=== PATIENT | male | born 1985 | race Hispanic/Latino ===

== ENCOUNTER 2019-03-11 14:48 | Inpatient (IN) | payer BC, OTHER ==
[~2019-03-11] VITALS: Ht 185.4 cm; Wt 104.3 kg
[2019-03-11] MEDS ORDERED: SODIUM CHLORIDE 0.9% 1000ML 1,000 ML IV STA (16:23)
[2019-03-11] MEDS: HYDROCODONE/APAP 5MG-325MG TAB PO PRN (17:35)
[2019-03-11] MEDS: VANCOMYCIN 1GM/NS 250 ML 250 ML IV SCH (17:40)
[2019-03-11] MEDS: PIPER-TAZ 3.375 GM 50 ML IV SCH (17:40)
--- NOTE | 2019-03-11 17:59 | Diagnostic Imaging Report ---
LEFT FOOT - 3 Images HISTORY: Cellulitis, ulceration, great toe, rule out osteo- COMPARISON: None available. FINDINGS: Overlying bandage partially limits bone detail. Bones: No acute displaced fracture. No discrete osseous erosion. Joints: Minimal hallux valgus. Soft tissues: Apparent soft tissue defect at the plantar aspect of the great toe along with regional soft tissue swelling and emphysema. IMPRESSION: 1. No radiographic evidence of osteomyelitis. 2. No radiopaque foreign body or underlying fracture. Signed by: Dr. North Norris D.O., M.M.M. on 03/11/2019 5:56 PM
[2019-03-11 18:09] LABS: BASOPHILS # (AUTO) 0.1 (0.0-0.1); BASOPHILS % 0.8 % (0.0-1.0); EOSINOPHILS # (AUTO) 0.1 (0.0-0.4); EOSINOPHILS % 0.9 % (0.0-6.0); HEMATOCRIT 40.7 % (38.2-49.6); HEMOGLOBIN 14.8 g/dL (14.0-18.0); LYMPHOCYTES # (AUTO) 0.9 (1.0-3.2); LYMPHOCYTES % 5.8 % (18.0-39.1); MEAN CORPUSCULAR HEMOGLOBIN 30.3 pg (28-32); MEAN CORPUSCULAR HGB CONC 36.4 g/dL (31-35); MEAN CORPUSCULAR VOLUME 83.2 fL (81-99); MONOCYTES # (AUTO) 1.1 (0.2-0.8); NEUTROPHILS # (AUTO) 12.9 (2.1-6.9); PLATELET COUNT 267 x10e3/uL (140-360); RED BLOOD COUNT 4.89 x10e6/uL (4.3-5.7)
[2019-03-11 18:15] LABS: CLARITY,URINE SL CLOUDY (CLEAR); KETONES,URINE 1+ (NEGATIVE); LEUKOCYTE ESTERASE ,URINE NEGATIVE (NEGATIVE); NITRITE,URINE NEGATIVE (NEGATIVE); PROTEIN,URINE DIPSTICK 2+ (NEGATIVE); URINE UROBILINOGEN 4 mg/dL (0.2 - 1)
[2019-03-11] MEDS ORDERED: DEXTROSE 50% SYRINGE 50 ML IV PRN (18:15)
[2019-03-11] MEDS ORDERED: ONDANSETRON HCL INJ 2MG/ML 2ML 2 MG/ML VIAL IV PRN (18:15)
[2019-03-11 18:16] LABS: BILIRUBIN,URINE 1+ (NEGATIVE); COLOR,URINE STRAW (YELLOW)
[2019-03-11 18:20] LABS: INR 0.94; PROTHROMBIN TIME 13.1 seconds (11.9-14.5)
[2019-03-11 18:21] LABS: PARTIAL THROMBOPLASTIN TIME 31.2 seconds (23.8-35.5)
[2019-03-11 18:24] LABS: AMORPHOUS SEDIMENT,URINE MODERATE (FEW); BACTERIA,URINE MODERATE /HPF; EPITHELIAL CELLS,URINE MODERATE /LPF; HYALINE CASTS 0-1 (0-1); MUCUS,URINE FEW (RARE); TRANSITIONAL EPI CELLS,URINE FEW
[2019-03-11 18:28] LABS: ALANINE AMINOTRANSFERASE 11 IU/L (0-55); ALBUMIN 2.6 g/dL (3.5-5.0); ALBUMIN/GLOBULIN RATIO 0.5 (0.8-2.0); ALKALINE PHOSPHATASE 119 IU/L (40-150); BLOOD UREA NITROGEN 13 mg/dL (7-26); BUN/CREATININE RATIO 14 (6-25); CALCIUM 9.5 mg/dL (8.4-10.2); CARBON DIOXIDE 26 mmol/L (22-29); CHLORIDE 96 mmol/L (98-107); CREATININE, SERUM 0.91 mg/dL (0.72-1.25); EST GLOMERULAR FILTRATION RATE > 60 ML/MIN (60-); GLUCOSE 201 mg/dL (74-118); MAGNESIUM 1.7 MG/DL (1.3-2.1); SODIUM 132 mmol/L (136-145)
--- OUTSIDE RECORDS SUMMARY | 2019-03-11 18:56 | XMS REPORT ---
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 Allergies, Adverse Reactions, Alerts This patient has no known allergies or adverse reactions. Medications This patient has no known medications. 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 FINDINGS: Overlying bandage partially limits bone detail. Bones: No acute displaced fracture. No discrete osseous erosion. Joints: Minimal hallux valgus. Soft tissues: Apparent soft tissue defect at the plantar aspect of the great toe along with regional soft tissue swelling and emphysema. IMPRESSION: 1. No radiographic evidence of osteomyelitis. 2. No radiopaque foreign body or underlying fracture. Signed by: Dr. Brian Norris D.O., M.M.M. on 03/11/2019 5:56 PM Dictated By: BRIAN NORRIS DO 54 Transcribed By: VALARIE on 03/11/191755 COPY TO: CORNELIUS TAPIA NP
[2019-03-11] MEDS: SODIUM CHLORIDE 0.9% 1000ML 1,000 ML IV SCH (18:58)
[2019-03-11] MEDS: IBUPROFEN 600 MG TAB PO PRN (19:20)
[2019-03-11] MEDS: INSULIN LISPRO 100 UNIT/1 ML 3ML VIAL SQ SCH (21:00)
[2019-03-11 22:02] VITALS: BP 122/64
--- NOTE | 2019-03-11 22:40 | NUR ---
Patient received via stretcher from ER. AAO x 4. Admission history obtained and initial physical assessment performed. Patient had no complaints of pain. Respirations even and non-labored. Dressing to left foot changed. IVF infusing at 100 cc /hr. Patient oriented to room, call light and plan of care. Fall precautions implemented. Patient instructed to call for assistance when needed. Call light within reach.
[2019-03-11 22:45] VITALS: BP 122/64
[2019-03-12] VITALS (7 sets, daily range): BP systolic 131–150; BP diastolic 76–86
[2019-03-12] MEDS: SODIUM CHLORIDE 0.9% 1000ML 1,000 ML IV SCH (04:08)
[2019-03-12] MEDS: IBUPROFEN 600 MG TAB PO PRN ×2 (05:14→22:09)
[2019-03-12] MEDS: VANCOMYCIN 1GM/NS 250 ML 250 ML IV SCH (05:15)
[2019-03-12] MEDS ORDERED: METFORMIN HCL500 MG PO (06:10)
[2019-03-12] MEDS: PIPER-TAZ 3.375 GM 50 ML IV SCH ×4 (06:18→22:04)
[2019-03-12] MEDS: INSULIN LISPRO 100 UNIT/1 ML 3ML VIAL SQ SCH ×4 (07:30→21:00)
--- NOTE | 2019-03-12 12:14 | NUR ---
WOUND CARE CONSULTATION: INITIAL EVALUATION Patient admitted from Home to ER for Worsening ulcer of Left Foot that started 2 weeks ago. Patient was referred from his PCP to admit under Dr Castillo. Wound Culture Performed on admission revealed no growth. X-ray- No Osteomyelitis but + for tissue swelling suggestive of cellulitis. Wound Care Consulted for Evaluation of Left Foot Great Toe Ulcer PATIENT VISIT: Patient AAOX4, Calm and cooperative. Able to tolerate manipulation and probing of open ulcer. Left Foot presents with swelling. Redness originating from Left Hallux and streaking to plantar aspect of foot and also streaking toward 1st Metatarsal. 2 ulcerations present and connect/ tunnel. Additional tunneling toward dorsal aspect of 1st metatarsal head 1.5cm . Able to probe to bone on proximal opening at area between 5 and 6 0'clock. Malodorous, draining copious amounts of purulent drainage upon expression from 1st met toward toe. Wound bed 60% slough and 40% friable granulation Wound measurements documented on Wound Assessment portion and are linked to this note. Periwound macerated with loose skin/unattached. Purple areas to dorsal aspect of left great toe with denuded epidermis. Reviewed care with Dr Castillo at bedside. Recommendation: will likely require surgical intervention, MRI ordered for ruling out Osteomyelitis, and deep culture swab ordered for c&S and gram stain. ABX adjusted by Dr. Castillo. Dr. Guzman DPM consulted for evaluation of ulcer for surgical debridement and washout. IMPRESSION: Left Foot Hallux- DFU Grade 3 RECOMMENDATION: Left Foot Hallux- DFU Grade 3 - Irrigate Tunneling wound with 30cc of Dakins 0.25% Solution q12h. - Pack Wound with Iodoform 1/4" Packing Gauze then apply Drawtex over open weeping areas, then 4x4 gauze and wrap with Kerlix every 12 Hours and PRN Strikethrough. Thank you for consulting with Wound Care. Addendum: 03/12/19 at 1232 by Brooks Zazueta RN Amended: Links added. Addendum: 03/12/19 at 1238 by Brooks Zazueta RN LABS: WBC15.11 HGB14.98 HCT40.7 NEUT%85 SVQ327 ALB2.6 Ovidio Score 20 No Pressure Ulcers Identified. Ambulatory.
[2019-03-12] MEDS: HYDROCODONE/APAP 5MG-325MG TAB PO PRN (13:52)
[2019-03-12] MEDS: SODIUM HYPOCHLORITE 0.25% 480 ML SOLN IR SCH ×2 (14:00→22:54)
--- NOTE | 2019-03-12 15:54 | Consultation ---
DATE OF CONSULTATION: CHIEF COMPLAINT AND HISTORY OF CHIEF COMPLAINT: Mr. Gideon Maciel is a most pleasant 33-year-old gentleman with severely infected left hallux. 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 The patient's previous medical history does indeed include diabetes, distal peripheral neuropathy, and some degree of peripheral arterial disease as yet to be determined. REVIEW OF SYSTEMS: Otherwise negative. He does report that he has had some fever, but no nausea and vomiting. FAMILY HISTORY: He has an aunt who is diabetic, but states no other family members are diabetic, particularly his parents are not diabetic. ALLERGIES: NO KNOWN DRUG ALLERGIES. LABORATORY DATA: He does have a white count which is elevated at 15.11. Deep wound culture and sensitivity has been taken and is pending. PHYSICAL EVALUATION OF LOWER EXTREMITY: Vascular status, the patient has mildly palpable pedal pulses, both dorsalis pedis and posterior tibial. Skin temperature is warm and capillary refill is within normal limits. Neurologically, the patient has a loss of protective sensation as evidenced by [place] monofilament testing. There is no pain to this large abscessed area with open wound through and through on the left hallux. Dermatologically, there is a xzbelfc-nrf-cqanauc wound starting on the plantar aspect of the left hallux measuring approximately 2 cm in circumference. This extends to an exit wound on the dorsal aspect through an abscessed area with raw granular tissue. It is possible to pass a probe all the way through. Bone is palpable through the abscessed area. Musculoskeletal evaluation shows the patient with rigidly contracted hammertoes, bunion deformities, and subluxed hallux. Radiographs are inconclusive for osteomyelitis at this point with some obstruction being noted with bandaging. DIAGNOSIS: Abscess cellulitis of the 1st metatarsophalangeal joint and hallux IPJ of the left foot. The abscessed area or cellulitic area extends to the midfoot grossly and has 2+ nonpitting edema with purpura and redness noted and a mottled appearance. MRI is pending and will be needed in order to further assess the bone infection. The patient otherwise will need an I and D and clean out regardless, but may also require an amputation of the hallux with this jucjrbm-cjk-bvnptoe wound. Arterial Dopplers will be ordered as well. The patient has been started on IV antibiotics and will pend further evaluation for long-term antibiotic care with Dr. Hood. JEFE Pugh/SHELIA /[id number]
[2019-03-12] MEDS: LACTOBACILLUS ACIDOPHILUS CAPSULE PO SCH (17:00)
[2019-03-12] MEDS: METFORMIN HCL 500 MG TAB PO SCH (17:00)
--- NOTE | 2019-03-12 17:11 | Diagnostic Imaging Report ---
TECHNIQUE: Magnetic resonance imaging of the LEFT foot was performed WITHOUT injected contrast. HISTORY: Cellulitis, diabetes, rule out osteomyelitis the left big toe COMPARISON: None available. DISCUSSION: Bone: Moderate bone marrow edema within the proximal and distal phalanges of the great toe. Patchy corresponding mildly decreased fatty marrow signal, which is more confluent at the medial and distal aspect of the first proximal phalanx, underlying the region of the soft tissue defect. Joints: Mild hallux valgus deformity. Trace effusions of the first interphalangeal joint, first metatarsophalangeal joint, second metatarsophalangeal joint, and sex proximal phalanx. Soft Tissues: Diffuse soft tissue edema, without a drainable fluid collection. Soft tissue defect at the medial and plantar aspect of the mid great toe. IMPRESSION: 1. High probability of osteomyelitis involving the medial and distal aspect of the first proximal phalanx with nonspecific reactive bone marrow edema of the remaining first proximal phalanx, first distal talus, and lateral aspect of the head of the first metatarsal bone. 2. Soft tissue edema without an abscess. Signed by: Dr. North Norris D.O., M.M.M. on 03/12/2019 5:08 PM
--- NOTE | 2019-03-12 19:28 | NUR ---
Patient received lying in bed. AAO x 4. No acute distress noted. Call light within reach.
--- NOTE | 2019-03-12 21:55 | Consultation ---
DATE OF CONSULTATION: REASON FOR CONSULTATION: Foot infection. HISTORY OF PRESENT ILLNESS: This patient who is a very pleasant 33-year-old male with history of diabetes mellitus, history of neuropathy, smoking, but he quit 2 years ago, history of hypertension. For the last 10 days or so, he has been having redness and swelling of his left foot big toe. He had callus. He tried to take it out, but the foot became red and swollen. He took some oral antibiotic when he came here after seeing his physician without any improvement. The patient was sent to the hospital. The patient was admitted. The patient is complaining of redness and swelling and pain in the foot, who has no history of trauma. PAST MEDICAL HISTORY: Diabetes mellitus, hypertension, neuropathy. PAST SURGICAL HISTORY: Denies. ALLERGIES: NKA. SOCIAL HISTORY: He used to smoke, but he quit 2 years ago. No drug abuse or alcohol abuse. FAMILY HISTORY: Hypertension and diabetes. REVIEW OF SYSTEMS: HEENT: There is no headache, visual changes, or hearing changes. : Negative. GI: Negative. SKIN: There is no other rash. JOINT: Negative. The patient has a history of left foot hallux. PHYSICAL EXAMINATION: GENERAL: He is currently alert, oriented, does not seem to be in acute distress. VITAL SIGNS: Stable, currently afebrile. HEENT: Not icteric. NECK: Supple. CHEST: Clear. HEART: S1 and S2. No S3, S4, or murmur. ABDOMEN: Soft. Bowel sounds present. No tenderness. EXTREMITIES: No edema. Left foot, there is erythema. There is edema in the foot. There is an ulcer stage III deep about 1 cm. LABORATORY DATA: White count is 15.1, hemoglobin 14.9. Glucose 152. IMPRESSION: Left foot infection, cellulitis, diabetic foot ulcer stage III with drainage, deep, concerned about osteomyelitis. We will put the patient on vancomycin and cefepime. Surgical debridement. Agree with MRI with contrast to rule out osteomyelitis, abscess of the foot. He would need I and D and send for culture and sensitivity. Recheck CBC. Recheck Chem panel. We will follow. MD BERNADINE Lake/MODL /[id number]
--- NOTE | 2019-03-12 23:15 | NUR ---
Patient informed of upcoming surgical procedure ---I & D with possible amputation. Patient stated he does not feel comfortable with "possible amputation" and would want to talk more with Dr. Mcneil before surgery . Patient instructed about "NPO' status at midnight. Patient verbalized understanding. Disclosure and Consent form remains unsigned.
[2019-03-13] VITALS (8 sets, daily range): BP systolic 119–159; BP diastolic 70–95
[2019-03-13] MEDS: HYDROCODONE/APAP 5MG-325MG TAB PO PRN ×2 (01:00→14:08)
--- NOTE | 2019-03-13 01:24 | NUR ---
Wound dressing done per MD's orders. Patient tolerated well.
[2019-03-13] MEDS: PIPER-TAZ 3.375 GM 50 ML IV SCH ×3 (03:31→22:09)
[2019-03-13 05:23] LABS: BASOPHILS # (AUTO) 0.1 (0.0-0.1); BASOPHILS % 0.9 % (0.0-1.0); EOSINOPHILS # (AUTO) 0.3 (0.0-0.4); EOSINOPHILS % 2.6 % (0.0-6.0); HEMATOCRIT 36.3 % (38.2-49.6); HEMOGLOBIN 12.4 g/dL (14.0-18.0); LYMPHOCYTES # (AUTO) 1.4 (1.0-3.2); LYMPHOCYTES % 11.1 % (18.0-39.1); MEAN CORPUSCULAR HEMOGLOBIN 29.3 pg (28-32); MEAN CORPUSCULAR HGB CONC 34.2 g/dL (31-35); MEAN CORPUSCULAR VOLUME 85.8 fL (81-99); MONOCYTES # (AUTO) 0.9 (0.2-0.8); MONOCYTES % 7.5 % (4.4-11.3); NEUTROPHILS # (AUTO) 9.4 (2.1-6.9); NEUTROPHILS % 77.1 % (38.7-80.0); PLATELET COUNT 232 x10e3/uL (140-360); RED BLOOD COUNT 4.23 x10e6/uL (4.3-5.7); RED CELL DISTRIBUTION WIDTH 11.9 % (11.7-14.4)
[2019-03-13 05:48] LABS: ANION GAP 9.5 mmol/L (8-16); BLOOD UREA NITROGEN 9 mg/dL (7-26); BUN/CREATININE RATIO 11 (6-25); CALCIUM 8.6 mg/dL (8.4-10.2); CARBON DIOXIDE 25 mmol/L (22-29); CHLORIDE 101 mmol/L (98-107); EST GLOMERULAR FILTRATION RATE > 60 ML/MIN (60-); GLUCOSE 180 mg/dL (74-118); POTASSIUM 3.5 mmol/L (3.5-5.1); SODIUM 132 mmol/L (136-145)
--- NOTE | 2019-03-13 06:03 | NUR ---
Dr. Shayne Mcneil paged regarding patient's request to speak to MD before surgery. Awaiting call back.
--- NOTE | 2019-03-13 07:10 | NUR ---
Walking rounds done. Shift report given to oncoming nurse regarding patient's status.
[2019-03-13] MEDS: VANCOMYCIN 1GM/NS 250 ML 250 ML IV SCH (07:24)
[2019-03-13] MEDS: INSULIN LISPRO 100 UNIT/1 ML 3ML VIAL SQ SCH ×4 (07:30→22:25)
[2019-03-13] MEDS: METFORMIN HCL 500 MG TAB PO SCH ×2 (08:00→17:05)
[2019-03-13] MEDS: VANCOMYCIN HCL 1.25 GM in SODIUM CHLORIDE 0.9% 250ML 250 ML IV SCH ×2 (08:30→20:25)
[2019-03-13] MEDS: LACTOBACILLUS ACIDOPHILUS CAPSULE PO SCH ×2 (08:51→17:05)
[2019-03-13] MEDS: SODIUM HYPOCHLORITE 0.25% 480 ML SOLN IR SCH ×2 (09:05→20:14)
[2019-03-13] MEDS ORDERED: BUPIVACAINE HCL 0.5% INJ 30 ML VIAL INJ ONE (09:18)
[2019-03-13] MEDS ORDERED: NEOSTIGMINE 1 MG/ML 10ML VIAL ONE (09:19)
[2019-03-13] MEDS ORDERED: BACITRACIN 50,000 UNIT VIAL ONE ×2 (09:19→09:56)
--- NOTE | 2019-03-13 09:30 | NUR ---
patient off unit for I&D left foot.
[2019-03-13] MEDS ORDERED: FENTANYL CITRATE/PF 100MCG/2 ML INJ ONE ×2 (10:48→14:18)
--- NOTE | 2019-03-13 11:26 | NUR ---
patient returned from I&D. reports pain 12/07 at this time. left foot elevated on 2 pillows, offered ice bag however states will call for it if needed. call light within reach.
[2019-03-13] MEDS ORDERED: MIDAZOLAM HCL 2 MG/2 ML VIAL ONE (14:18)
[2019-03-13] MEDS ORDERED: PROPOFOL IV EMULSION 10 MG/ML 20 ML VIAL ONE (14:38)
[2019-03-13] MEDS ORDERED: SEVOFLURANE INHAL SOLN 250 ML PEN BTL ONE (14:38)
[2019-03-13] MEDS ORDERED: LIDOCAINE HCL 2% LOCAL INJ 5 ML SDV VIAL INJ ONE (14:38)
[2019-03-13] MEDS ORDERED: ONDANSETRON HCL INJ 2MG/ML 2ML 2 MG/ML VIAL ONE (14:38)
[2019-03-13] MEDS ORDERED: DEXAMETHASONE SOD PHOS INJ 4 MG/ML VIAL ONE (14:38)
[2019-03-13] MEDS ORDERED: KETOROLAC TROMETHAMINE 30 MG/ML VIAL ONE (14:38)
[2019-03-13] MEDS ORDERED: SILVER NITRATE SWABS TOP ONE (15:30)
--- NOTE | 2019-03-13 16:10 | NUR ---
WOUND CARE CONSULTATION: INITIAL EVALUATION Patient admitted from Home to ER for Worsening ulcer of Left Foot that started 2 weeks ago. Patient was referred from his PCP to admit under Dr Castillo. Wound Culture Performed on admission revealed no growth. X-ray- No Osteomyelitis but + for tissue swelling suggestive of cellulitis. LABS: WBC12.14 HGB12.4 HCT36.3 NEUT%77.1 Wound Care Consulted for Evaluation of Left Foot Great Toe Ulcer PATIENT VISIT: 03/13/19 Patient OOB to rest room. Ambulating self back to bed. Education provided. NWB at this time to left Foot. S/P I&D of Left Foot DFU Grade 3 this morning. New Order noted for VAC Placement. Dressing Removed to Left Foot. Strikethrough noted, bloody. - Packing removed. Noted tricking of blood to gauze. Dr. Guzman informed of findings. Rec'd okay to try Silver nitrate sticks. Two sticks tried. noted multiple areas continued to trickle. Too many areas noted and tissue too friable to continue. VAC not appropriate at this time. Dr. Guzman agrees. Okay to place VAC on hold and use Iodoform Packing Gauze. Okay to re-evaluate foot ulcer on Saturday for VAC placement. Wound Packed with Iodoform Packing gauze and Covered with staggered 4x4 gauze and secured with Kerlix wrap and Brayden Bandage. Diabetes education provided. Will need continued reinforcement. Education provided on how to manage dressed wound, Plan reviewed. Patient verbalized understanding. Wound Measurements documented on Wound Assessment section with wound description. Wound Assessment is linked to this note. Ovidio Score 20 No Pressure Ulcers Identified. LAST VISIT: 03/12/19 Patient AAOX4, Calm and cooperative. Able to tolerate manipulation and probing of open ulcer. Left Foot presents with swelling. Redness originating from Left Hallux and streaking to plantar aspect of foot and also streaking toward 1st Metatarsal. 2 ulcerations present and connect/ tunnel. Additional tunneling toward dorsal aspect of 1st metatarsal head 1.5cm . Able to probe to bone on proximal opening at area between 5 and 6 0'clock. Malodorous, draining copious amounts of purulent drainage upon expression from 1st met toward toe. Wound bed 60% slough and 40% friable granulation Wound measurements documented on Wound Assessment portion and are linked to this note. Periwound macerated with loose skin/unattached. Purple areas to dorsal aspect of left great toe with denuded epidermis. Reviewed care with Dr Castillo at bedside. Recommendation: will likely require surgical intervention, MRI ordered for ruling out Osteomyelitis, and deep culture swab ordered for c&S and gram stain. ABX adjusted by Dr. Castillo. Dr. Guzman DPM consulted for evaluation of ulcer for surgical debridement and washout. IMPRESSION: Left Foot Hallux- DFU Grade 3 RECOMMENDATION: 1. Hold VAC Placement until Saturday. 2. Left Foot Hallux- DFU Grade 3 - S/p I&D and Washout. - Cleanse wound with NS and 4x4 gauze Daily. - Pack Wound with Iodoform 1/4" Packing Gauze then 4x4 gauze and wrap with Kerlix and Brayden Bandage Daily. 3. NWB Left Foot 4. Walker to bedside. Addendum: 03/13/19 at 1626 by Brooks Zazueta RN Amended: Links added.
--- NOTE | 2019-03-13 17:26 | Operative Report ---
DATE OF PROCEDURE: 03/13/2019 SURGEON: Ayan Guzman DPM PREOPERATIVE DIAGNOSES: 1. Osteomyelitis of the left hallux. 2. Abscess cellulitis, left foot with septic arthritis, deep wound infection. POSTOPERATIVE DIAGNOSES: 1. Osteomyelitis of the left hallux. 2. Abscess cellulitis, left foot with septic arthritis, deep wound infection. TITLE OF OPERATION: Incision and drainage with deep wound debridement of the left foot hallux and 1st metatarsal area. ANESTHESIA: General endotracheal. HEMOSTASIS: None used. PROCEDURE IN DETAIL: The patient was taken to the operating room in a mildly sedated state, placed upon the operating table in supine position. Following induction of general anesthetic, the left lower extremity was elevated and prepped and draped in the usual aseptic manner utilized Betadine prep, placed upon the operating table prior to performing following procedure. With expression, there was significant purulent exudate from both the area of the 1st metatarsophalangeal joint as well as the area of the interphalangeal joint of the left hallux. An incision was made medially from the interphalangeal joint all the way down to the connecting abscess and septic joint of the 1st metatarsophalangeal joint. Then, incision was deepened via sharp and blunt dissection. Multiple pus pockets were noted dorsally and plantarly with significant necrotic wound debris in all areas inspected. The cellulitis was intense and purulent exudate significant and in conjunction with bone. The bone itself was noted to be hard and there was no bone deformity, but it was in both joints bathed in purulent exudate. After dissection and probing of all significant abscessed areas, deep wound debridement was performed with a #15 blade, excisional in nature. That area was then irrigated with copious amounts of sterile bacitracin solution. A Simpulse system was used to irrigate and washout the entire joint both IPJ and MPJ as well as all soft tissue abscessed areas. There was a communicating wound from the plantar aspect of the interphalangeal joint, which was quite large all the way to the dorsum of the hallux encompassing soft tissues overlying both the proximal and distal phalanx of the hallux. The incision having thus been probed and irrigated. Attention was directed to the plantar wound, which was further debrided utilizing an excisional debridement and #15 blade. This wound now measures approximately 4 cm in circumference. The wound on the dorsal medial aspect measures approximately 6 cm in circumference. Both were evaluated for any further necrotic material. All pus pockets having thus been irrigated were packed with quarter-inch iodoform separately. The appropriate mildly compressive dressings were applied. No tourniquet had been used. Approximately 10-15 mL of blood was lost with the procedure. A human tissue allograft was injected into the area to facilitate healing. This was a flowable graft and covered the remaining tissues. The wound was thus closed and packed open. Deep wound culture and sensitivities had been taken prior to antibiotic irrigation. The patient tolerated both anesthetic and procedure very well and will return to the floor for further local wound care. Likely, wound VAC will be used due to the size of the wounds. We will follow with appropriate wound care and IV antibiotics as per Dr. Hood's request. Addendum: Please note that amputation of the left hallux was not performed. The patient was consented for possible amputation, but no amputation was performed on this visit. JEFE Pugh/SHELIA /[id number]
[2019-03-13] MEDS ORDERED: ONDANSETRON HCL 4 MG ORAL DISINTEGRATING TAB PO PRN (17:30)
--- NOTE | 2019-03-13 19:19 | NUR ---
Patient received sitting up in bed. AAO x 4. Patient had no complains of pain. No signs of respiratory distress. Dressing to left foot clean, dry and intact. Fall precautions implemented. Patient instructed to call for assistance when needed. Call light within reach.
[2019-03-14] VITALS (8 sets, daily range): BP systolic 116–136; BP diastolic 64–76
[2019-03-14] MEDS: PIPER-TAZ 3.375 GM 50 ML IV SCH ×3 (05:42→22:10)
--- NOTE | 2019-03-14 05:58 | NUR ---
Patient informed of recommended medical procedure-- PICC line place placement. Patient verbalized understanding and voluntarily signed "Disclosure and Consent " form.
--- NOTE | 2019-03-14 06:29 | NUR ---
Patient resting comfortably. Walking rounds done . Shift report given to oncoming nurse.
--- NOTE | 2019-03-14 07:27 | Progress Note ---
DATE: 03/13/2019 Internal Medicine Progress Note This is a coverage for Dr. Arslan Castillo. SUBJECTIVE: Mr. Maciel was seen and examined at bedside. He continues with steady progress. Yesterday, MRI was performed, which demonstrated high probability of osteomyelitis. The patient subsequently had Podiatry perform washout. There was furthermore some debridement of the lesion of the foot. Hemoglobin A1c came back very high at 11.4%. The patient remains at the bedside with cultures have shown Staphylococcus aureus as well as many Streptococcus. REVIEW OF SYSTEMS: No headaches, no bleeding. OBJECTIVE: VITAL SIGNS: Afebrile, vital signs noted and reviewed per the chart record. GENERAL: In no acute distress, alert and calm. HEENT: Normocephalic, atraumatic. NECK: Supple. Throat midline. LUNGS: Bilateral air entry, clear. CARDIOVASCULAR: S1, S2. No murmurs, rubs, or gallops. ABDOMEN: Soft, nontender. EXTREMITIES: No clubbing, no cyanosis. There is no darion edema. INTEGUMENT: No rash, no purpura. The left distal foot is covered. LABORATORY DATA: Labs reviewed per the chart record. IMPRESSION AND PLAN: 1. Abscess with cellulitis of the first metatarsophalangeal joint and hallux IPJ left foot. 2. Postoperative state, status post debridement and washout. 3. Diabetes. 4. Hypertension. 5. Hypoalbuminemia, moderate protein malnutrition. Continue to optimize diet. As the patient eats regular diet, we will escalate medicines appropriately. For now, we have restarted him on metformin, which he was on a long time ago. He was encouraged that he needs diabetes. Follow up the cultures. PICC line will be placed and the patient is expectant for long-term antibiotics. MD WAYNE Ugarte/MODL /[id number]
[2019-03-14] MEDS: METFORMIN HCL 500 MG TAB PO SCH ×2 (08:47→16:11)
[2019-03-14] MEDS: VANCOMYCIN HCL 1.25 GM in SODIUM CHLORIDE 0.9% 250ML 250 ML IV SCH ×2 (08:47→20:24)
[2019-03-14] MEDS: LACTOBACILLUS ACIDOPHILUS CAPSULE PO SCH ×2 (08:47→16:11)
[2019-03-14] MEDS: INSULIN LISPRO 100 UNIT/1 ML 3ML VIAL SQ SCH ×8 (08:56→20:59)
--- NOTE | 2019-03-14 12:37 | Diagnostic Imaging Report ---
Examination: Single AP view of the chest. COMPARISON: None. INDICATION: Line placement DISCUSSION: Lines/tubes: None. Lungs: Right PICC line with tip overlying the SVC. Pleura: There is no pleural effusion or pneumothorax. Heart and mediastinum: The heart and the mediastinum are unremarkable. Bones and soft tissues: No acute bony abnormalities. IMPRESSION: 1. No acute cardiopulmonary abnormalities. Signed by: Dr. Arslan Alva M.D. on 03/14/2019 12:34 PM
[2019-03-14] MEDS: HYDROCODONE/APAP 5MG-325MG TAB PO PRN ×2 (16:12→22:11)
--- NOTE | 2019-03-14 19:30 | NUR ---
Received patient from day nurse, patient is alert and oriented, safety and fall precautions maintained at this time, bed in lowest position and locked, needed items beside call griffith close to patient, plan of care discussed with patient, patient is currently stable will continue to monitor.
--- NOTE | 2019-03-14 20:35 | Progress Note ---
DATE: 03/14/2019 Postoperative Visit The patient is seen today 1-day status post I and D deep wound debridement and washout of the 1st metatarsophalangeal joint and interphalangeal joint of the left hallux. The wound dressing had minimal drainage, was removed today. Packing removed. Wound base irrigated. It is showing response to the procedure with a reduction in edema, reduction in erythema, and overall healthier wound base than was observed at the time of surgery yesterday. The decompression appears to be facilitating drainage and improved soft tissue infection. Review of the cultures taken yesterday shows staph and beta-hemolytic strep. The labs are trending down with regard to white count and will be reviewed tomorrow. The patient states he is having minimal discomfort and actually beginning to feel better after surgery. On physical evaluation of the wound, the wound is quite enlarged and the wound base mixture of necrotic and granular tissue. After irrigation and repacking, a bushel girl packing was performed with a very light gauze wrap to facilitate additional drainage. No Brayden bandage will be used. This is to be continued on a daily basis until the wound VAC goes on on Saturday. The patient to continue with the IV antibiotics. He already has his PICC line for long-term administration of IV antibiotics per Dr. Hood. The patient will be followed intermittently otherwise as he continues to improve postoperatively. JEFE Pugh/SHELIA /[id number]
[2019-03-14] MEDS: INSULIN GLARGINE 100 UNITS/ML VIAL SQ SCH (20:38)
--- NOTE | 2019-03-14 22:40 | Progress Note ---
DATE: 03/14/2019 Internal Medicine Progress Note Covered for Dr. Arslan Castillo. SUBJECTIVE: Mr. Maciel was seen and examined at bedside. Blood sugars are 180 and sometimes 200s. I discussed with him at length. We decided to start insulin. Nursing corroborated on plan for teaching the patient. Foot remains covered. No new worsening. REVIEW OF SYSTEMS: No headaches, no bleeding. OBJECTIVE: VITAL SIGNS: Afebrile, vital signs stable, reviewed per the chart record. GENERAL: In no acute distress. Alert and calm. HEENT: Normocephalic, atraumatic. NECK: Supple. Throat midline. LUNGS: Bilateral air entry, clear. CARDIOVASCULAR: S1, S2. No murmurs, rubs, or gallops. ABDOMEN: Soft and nontender. EXTREMITIES: No clubbing. No cyanosis. There is only trace edema to that lower foot. INTEGUMENT: No rash. No purpura. The left foot is covered. LABORATORY DATA: No updates. IMPRESSION AND PLAN: 1. Osteomyelitis of toes. 2. Status post debridement of abscess and cellulitis. 3. Diabetes, uncontrolled. 4. History of medication, nonadherence. 5. Mild anemia. At this point, continue glycemic followup. Nursing to instruct on the use of insulin. The patient is recommended to start insulin. If it is doubtful, the patient can have glycemic control on oral medicines only given the high hemoglobin A1c. The patient will get a wound VAC applied expectantly on Saturday. Follow up the final sensitivities of the organisms and adjust antibiotics as per the ID specialist. MD WAYNE Ugarte/SHELIA /[id number]
[2019-03-15] VITALS (8 sets, daily range): BP systolic 127–166; BP diastolic 76–93
[2019-03-15] MEDS: PIPER-TAZ 3.375 GM 50 ML IV SCH ×3 (05:25→22:45)
[2019-03-15] MEDS: HYDROCODONE/APAP 5MG-325MG TAB PO PRN (06:44)
--- NOTE | 2019-03-15 06:45 | NUR ---
patient endorsed to next shift for continuity of care.
[2019-03-15] MEDS: INSULIN LISPRO 100 UNIT/1 ML 3ML VIAL SQ SCH ×6 (07:30→20:32)
--- NOTE | 2019-03-15 07:30 | NUR ---
REC'D PT AAOX3, PT ON RA, NO S/S OF DISTRESS. LEFT LEG HAS CELLULITIS AND DRESSING IS IN PLACE. PT TO NOT BEAR WEIGHT ON LEFT FOOT. WALKER IS AT BEDSIDE. IV IS CLEAN AND INTACT WITHOUT NO COMPLICATIONS. SIDE RAILS UP X2, BED IN LOWEST POSITION, AND BED IN LOWEST POSITION.
[2019-03-15] MEDS: VANCOMYCIN HCL 1.25 GM in SODIUM CHLORIDE 0.9% 250ML 250 ML IV SCH ×2 (08:02→21:38)
[2019-03-15] MEDS: METFORMIN HCL 500 MG TAB PO SCH ×2 (08:02→16:32)
[2019-03-15] MEDS: LACTOBACILLUS ACIDOPHILUS CAPSULE PO SCH ×2 (08:02→16:32)
[2019-03-15] MEDS ORDERED: SODIUM CHLORIDE 0.9% 1000ML 1,000 ML ONE (10:50)
--- NOTE | 2019-03-15 11:00 | NUR ---
CHANGED LEFT FOOT DRESSING. OLD DRESSING HAD MODERATE SEROSANGUINEOUS DRAINING. WOUND NOT DRAINING. CLEANED WITH NS, PAT DRY, PACKED LIGHTLY WITH IODOFORM, APPLIED A&D PAD, WRAPPED WITH GAUZE, AND TAPED IT. PT TOLERATED WOUND DRESSING CHANGE WELL. STATED THAT PAIN IS TOLERABLE 2/10. SIDE RAILS UP X2, BED IN LOWEST POSITION, AND CALL LIGHT WITHIN REACH.
--- NOTE | 2019-03-15 18:14 | NUR ---
PT IS IN BED RESTING WITH EYES CLOSED. CHEST IS RISING UP AND DOWN. NO S/S OF DISTRESS. BED IN LOWEST POSITION, SIDE RAILS UP X2, AND CALL KRAFT WITHIN REACH.
[2019-03-15] MEDS: INSULIN GLARGINE 100 UNITS/ML VIAL SQ SCH (20:56)
[2019-03-16] VITALS (9 sets, daily range): BP systolic 153–187; BP diastolic 88–106
--- NOTE | 2019-03-16 02:30 | Progress Note ---
DATE: 03/15/2019 Internal Medicine Progress Note This is a coverage for Dr. Arslan Castillo. SUBJECTIVE: Gideon Maciel was seen and examined at bedside. The patient continues to have steady progress. He has excellent glucose control on 1st day after converting him to insulin therapy. Normal saline at 100 mL/h. He is having bowel movement. His leg continues to have good wound care so far without evidence of worsening. REVIEW OF SYSTEMS: No headaches, no bleeding. OBJECTIVE: VITAL SIGNS: Afebrile, vital signs noted reviewed per the chart record. GENERAL: No acute distress. Alert and calm. HEENT: Normocephalic, atraumatic. NECK: Supple. Throat midline. LUNGS: Bilateral air entry. The patient with good breath sounds and no rales. CARDIOVASCULAR: S1, S2. No murmurs, rubs, or gallops. ABDOMEN: Soft, nontender. EXTREMITIES: No clubbing. No cyanosis. There is no edema. INTEGUMENT: No rash. No purpura. The left foot is well covered, well bandaged, and not seen. IMPRESSION AND PLAN: 1. Staphylococcus and Streptococcus foot infection including osteomyelitis and cellulitis with abscess, status post debridement locally and drainage of abscess. 2. Diabetes, uncontrolled chronically. Better now. 3. History of treatment nonadherence. 4. We will continue more diabetic teaching. Continue same diabetes regimen. The patient expected for wound VAC feeding tomorrow. The patient expected to have arrangement of home antibiotic tomorrow. Considerations ordered. Diabetes, glucometer strips and glucometer as well as supplies also to be made when discharge date is known. Follow along closely. Grant Jacobo MD GMParker/MODL /[id number]
--- NOTE | 2019-03-16 03:55 | Progress Note ---
DATE: 03/14/2019 SUBJECTIVE: Mr. Carias is doing better. No new complaints. REVIEW OF SYSTEMS: HEENT: Negative. PULMONARY: Negative. CARDIAC: Negative. PHYSICAL EXAMINATION: GENERAL: He is currently alert, oriented, does not seem to be in acute distress. VITAL SIGNS: Currently afebrile. HEENT: He is not icteric. NECK: Supple. No JVD. No lymphadenopathy. No thyromegaly. CHEST: Clear bilateral. HEART: S1, S2. No S3, S4, or murmur. ABDOMEN: Soft. Bowel sounds present. No tenderness. EXTREMITIES: No edema. Foot is wrapped. left foot was I and D'd. LABORATORY DATA: His white count is coming down to 12.14. His sodium 132, potassium 3.5, creatinine . IMPRESSION: Osteomyelitis, abscess, status post I and D of the left foot. We will get a PICC line. We will arrange eight weeks of IV antibiotic. We will follow weekly lab, weekly CBC. We will follow. MD BERNADINE Lake/SHELIA /[id number]
[2019-03-16 06:21] LABS: ANION GAP 10.5 mmol/L (8-16); BLOOD UREA NITROGEN 5 mg/dL (7-26); BUN/CREATININE RATIO 6 (6-25); CALCIUM 8.5 mg/dL (8.4-10.2); CARBON DIOXIDE 26 mmol/L (22-29); CHLORIDE 105 mmol/L (98-107); CREATININE, SERUM 0.78 mg/dL (0.72-1.25); EST GLOMERULAR FILTRATION RATE > 60 ML/MIN (60-); GLUCOSE 98 mg/dL (74-118); MAGNESIUM 1.6 MG/DL (1.3-2.1); POTASSIUM 3.5 mmol/L (3.5-5.1); SODIUM 138 mmol/L (136-145)
[2019-03-16] MEDS: PIPER-TAZ 3.375 GM 50 ML IV SCH ×3 (06:21→22:45)
[2019-03-16] MEDS: INSULIN LISPRO 100 UNIT/1 ML 3ML VIAL SQ SCH ×7 (07:30→21:00)
[2019-03-16 08:00] LABS: BASOPHILS # (AUTO) 0.1 (0.0-0.1); BASOPHILS % 1.4 % (0.0-1.0); EOSINOPHILS # (AUTO) 0.4 (0.0-0.4); EOSINOPHILS % 4.1 % (0.0-6.0); HEMATOCRIT 34.5 % (38.2-49.6); HEMOGLOBIN 12.1 g/dL (14.0-18.0); LYMPHOCYTES # (AUTO) 1.4 (1.0-3.2); LYMPHOCYTES % 15.5 % (18.0-39.1); MEAN CORPUSCULAR HEMOGLOBIN 29.7 pg (28-32); MEAN CORPUSCULAR HGB CONC 35.1 g/dL (31-35); MEAN CORPUSCULAR VOLUME 84.6 fL (81-99); MONOCYTES # (AUTO) 0.8 (0.2-0.8); MONOCYTES % 8.1 % (4.4-11.3); NEUTROPHILS # (AUTO) 6.5 (2.1-6.9); NEUTROPHILS % 70.1 % (38.7-80.0); PLATELET COUNT 276 x10e3/uL (140-360); RED BLOOD COUNT 4.08 x10e6/uL (4.3-5.7); RED CELL DISTRIBUTION WIDTH 11.9 % (11.7-14.4)
[2019-03-16] MEDS: LACTOBACILLUS ACIDOPHILUS CAPSULE PO SCH ×2 (08:40→16:54)
[2019-03-16] MEDS: METFORMIN HCL 500 MG TAB PO SCH ×2 (08:40→16:54)
[2019-03-16] MEDS: VANCOMYCIN HCL 1.25 GM in SODIUM CHLORIDE 0.9% 250ML 250 ML IV SCH ×2 (08:40→20:20)
[2019-03-16] MEDS: HYDROCODONE/APAP 5MG-325MG TAB PO PRN (10:10)
--- NOTE | 2019-03-16 11:50 | NUR ---
WOUND CARE CONSULTATION: FOLLOW UP WITH VAC PLACEMENT Patient admitted from Home to ER for Worsening ulcer of Left Foot that started 2 weeks ago. Patient was referred from his PCP to admit under Dr Castillo. Wound Culture Performed on admission revealed no growth. X-ray- No Osteomyelitis but + for tissue swelling suggestive of cellulitis. MRI- + for Osteomyelitis LABS: WBC9.29 HGB12.1 HCT34.5 NEUT%70.1 Wound Care Consulted for VAC Placement PATIENT VISIT: 03/16/19 Patient resting in bed AAOX4. Left Foot Dressing in place. Wound appears hemodynamically stable. Redness improving to plantar and dorsal aspects. Wound bed friable with 100% dark red granular tissue. Weeping moderate serosanguineous fluid. No exposed bone noted. Swelling much improved. +1--> +2 edema. Denuded skin noted at 1st hallux at 1st webspace measuring 3x2x 0.1cm. draining onto 1st webspace and very macerated tissue at first webspace involving 1st and 2nd toes. Patient complains of pain only when tissue palpated. Tolerated procedure well without discomfort. VAC @-120mmhg continuous placed using black foam to two sites. Plantar aspect of hallux and incisional line from hallux toward 1st met. Head. Wound Measurements documented on Wound Assessment section with wound description. Wound Assessment is linked to this note. Discharge Planning for home with OP WC for dressing changes and follow up with Dr. Guzman at his clinic. IV ABX per Dr. Hood for Osteomyelitis. PATIENT VISIT: 03/13/19 Patient OOB to rest room. Ambulating self back to bed. Education provided. NWB at this time to left Foot. S/P I&D of Left Foot DFU Grade 3 this morning. New Order noted for VAC Placement. Dressing Removed to Left Foot. Strikethrough noted, bloody. - Packing removed. Noted tricking of blood to gauze. Dr. Guzman informed of findings. Rec'd okay to try Silver nitrate sticks. Two sticks tried. noted multiple areas continued to trickle. Too many areas noted and tissue too friable to continue. VAC not appropriate at this time. Dr. Guzman agrees. Okay to place VAC on hold and use Iodoform Packing Gauze. Okay to re-evaluate foot ulcer on Saturday for VAC placement. Wound Packed with Iodoform Packing gauze and Covered with staggered 4x4 gauze and secured with Kerlix wrap and Brayden Bandage. Diabetes education provided. Will need continued reinforcement. Education provided on how to manage dressed wound, Plan reviewed. Patient verbalized understanding. Wound Measurements documented on Wound Assessment section with wound description. Wound Assessment is linked to this note. Ovidio Score 20 No Pressure Ulcers Identified. LAST VISIT: 03/12/19 Patient AAOX4, Calm and cooperative. Able to tolerate manipulation and probing of open ulcer. Left Foot presents with swelling. Redness originating from Left Hallux and streaking to plantar aspect of foot and also streaking toward 1st Metatarsal. 2 ulcerations present and connect/ tunnel. Additional tunneling toward dorsal aspect of 1st metatarsal head 1.5cm . Able to probe to bone on proximal opening at area between 5 and 6 0'clock. Malodorous, draining copious amounts of purulent drainage upon expression from 1st met toward toe. Wound bed 60% slough and 40% friable granulation Wound measurements documented on Wound Assessment portion and are linked to this note. Periwound macerated with loose skin/unattached. Purple areas to dorsal aspect of left great toe with denuded epidermis. Reviewed care with Dr Castillo at bedside. Recommendation: will likely require surgical intervention, MRI ordered for ruling out Osteomyelitis, and deep culture swab ordered for c&S and gram stain. ABX adjusted by Dr. Castillo. Dr. Guzman DPM consulted for evaluation of ulcer for surgical debridement and washout. IMPRESSION: 1. Left Foot Hallux- Medial- DFU Grade 3 with Osteomyelitis- S/P I&D and Washout. 2. Left Foot Great Toe @ 1st Webspace- DFU RECOMMENDATION: 1. Left Foot Hallux- Medial- DFU Grade 3 - S/P I&D and Washout. - Cleanse wound with NS and 4x4 gauze Daily. - Start VAC -120mmHg Continuous, Change TIW. 2.Left Foot Great Toe @ 1st Webspace: - Cleanse wound with NS and 4x4 gauze Dailyf - Apply Maxsorb Ag+ double Layer then Wrap with Kerlix Daily. 3. Continue NWB Left Foot Thank you for consulting with Wound Care. Addendum: 03/16/19 at 1206 by Brooks Zazueta RN Amended: Links added.
--- NOTE | 2019-03-16 16:02 | NUR ---
Nutrition Screen Note RD Recommendation for Physician: - Continue 1800 ADA diet Plan of Care: RD following, monitoring for tolerance and adequacy Nutrition reason for involvement: Early LOS Primary Diagnose(s): cellulitis, diabetic foot ulcer- L great toe PMH: DM, PAD, peripheral neuropathy Ht: 73 in Wt: 232.06 lb BMI: 30.6 kg/m2 IBW: [address] Assessment: (03/16) 33 YOM admitted for infected diabetic ulcer to L great toe. Pt seen today for early LOS. Pt discussed during am rounds. Pt reports good appetite and po intake currently and [employer]. Pt reports some taste changes due to medications and denies GI distress. Pt denies wt loss, reports UBW of 230#. Chart reviewed. Labs and meds reviewed. Will monitor and continue to follow. Current Diet: 1800 ADA Malnutrition Evaluation (03/16/19) The patient does not meet criteria for a specified degree of malnutrition at this time. Will re-evaluate at follow-up as appropriate. Diet Education Needs Assessment: Diet education not indicated. Nutrition Care Level: Low Signed: Alka Crane RD, LD, [facility]
--- NOTE | 2019-03-16 19:25 | NUR ---
Received patient lying in bed, patient is alert and oriented x 3, introduced self to patient and patient made aware of the plans of the shift, patient denies pain at this time, except on the left leg but states that the pain level is tolerable. patient assessed, patient has a wound vac connected, settings as below notes. safety and fall precaution maintained at this time, bed in lowest position and locked, needed items beside bed and call griffith placed close to patient, patient instructed to use it to call nurses for any assistance needed, patient verbalized understanding. patient is currently stable will continue to monitor. 1. Left Foot Hallux- Medial- DFU Grade 3 - S/P I&D and Washout. - Cleanse wound with NS and 4x4 gauze Daily. - Start VAC -120mmHg Continuous, Change TIW. 2.Left Foot Great Toe @ 1st Webspace: - Cleanse wound with NS and 4x4 gauze Dailyf - Apply Maxsorb Ag+ double Layer then Wrap with Kerlix Daily. 3. Continue NWB Left Foot
--- NOTE | 2019-03-16 19:48 | NUR ---
patient had consistent elevated bp throughout the day, last bp checked was 187/106, Dr. Castillo was made aware and ordered for losartan daily.
[2019-03-16] MEDS ORDERED: LOSARTAN POTASSIUM 100 MG TAB PO ONE (20:00)
[2019-03-16] MEDS: INSULIN GLARGINE 100 UNITS/ML VIAL SQ SCH (22:32)
--- NOTE | 2019-03-17 02:22 | NUR ---
patient stated pain on rounds, however, patient refused pain med removed and sent to his bed side.
[2019-03-17 04:43] VITALS: BP 153/96
[2019-03-17] MEDS: PIPER-TAZ 3.375 GM 50 ML IV SCH ×2 (05:03→14:24)
--- NOTE | 2019-03-17 06:45 | NUR ---
patient endorsed to next shift for continuity of care.
--- NOTE | 2019-03-17 07:17 | NUR ---
Walking rounds completed at this time. Patient is A&Ox3, resting in bed. Patient states he has no pain. Left foot elevated on pillow. Wound vac is in place. No signs of distress noted. Call griffith is within reach.
[2019-03-17] MEDS: INSULIN LISPRO 100 UNIT/1 ML 3ML VIAL SQ SCH ×6 (07:30→15:26)
[2019-03-17 08:02] VITALS: BP 166/96
[2019-03-17 08:48] VITALS: BP 166/96
[2019-03-17] MEDS: LACTOBACILLUS ACIDOPHILUS CAPSULE PO SCH ×2 (08:48→17:24)
[2019-03-17] MEDS: VANCOMYCIN HCL 1.25 GM in SODIUM CHLORIDE 0.9% 250ML 250 ML IV SCH (08:48)
[2019-03-17] MEDS: METFORMIN HCL 500 MG TAB PO SCH ×2 (08:48→17:24)
[2019-03-17] MEDS ORDERED: LOSARTAN POTASSIUM 100 MG TAB PO SCH (09:00)
--- NOTE | 2019-03-17 09:24 | NUR ---
CM SPOKE TO PATIENT AT BEDSIDE REGARDING OUTPATIENT WOUND CARE ORDERS. PATIENT AWARE AND VERBALLY AGREES TO RECEIVE IV ABX THERAPY AT DR. LOVELACE'S OFFICE AND OUTPATIENT WOUND CARE AT [facility]. PATIENT REQUESTS [facility] OUTPATIENT [facility]OUND [facility]ARE CENTER AND REFUSES ANY OTHER OPTIONS. CHOICE LETTER SIGNED AND PLACED IN CHART. FACE SHEET AND ORDER SENT TO OUTPATIENT WOUND CARE CLINIC. [facility] (P) [phone] (F) [phone] ADDRESS: [address] [place] [id number]
--- NOTE | 2019-03-17 09:29 | NUR ---
PATIENT TO BE DISCHARGED AND ON SERVICE WITH THE FOLLOWING OUTPATIENT WOUND CARE CLINIC: [facility] (P) [phone] (F) [phone] ADDRESS: [address] [place] [id number] PLEASE CALL AND MAKE APPOINTMENT PRIOR TO DISCHARGE.
[2019-03-17 11:27] VITALS: BP 155/95
--- NOTE | 2019-03-17 12:05 | NUR ---
Orders received from Dr. Castillo to discharge the patient once wound vac is placed. Provided pharmacy information to send new medications.
--- NOTE | 2019-03-17 14:23 | Progress Note ---
DATE: 03/17/2019 The patient is seen today five days status post I and D deep wound debridement with washout of the 1st metatarsophalangeal joint and interphalangeal joint of the left hallux. The patient states he is feeling much better, he has had no pain, the wound VAC has been on two days now. The patient's IV antibiotics are set by Dr. Hood's office and he will be following for wound VAC changes through the Outpatient Wound Care Center at [facility]. I had recommended the patient follow there as well as with Dr. Hood for infusions and the patient is anxious to pursue both of those arrangements. His PICC line is in, his wound dressing is on and the VAC is functional and operational, it was not removed for today's visit. I do need to see him within one week of discharge at my office, this information has been dispensed to the patient as well as nursing staff. The patient overall is doing well, labs continue to trend to the positive and we will be following him within one week postoperatively. JEFE Pugh/SHELIA /[id number]
[2019-03-17 15:20] VITALS: BP 161/97
--- NOTE | 2019-03-17 16:51 | NUR ---
WOUND CARE CONSULTATION - FOLLOW UP/ DISCHARGE PLANNING. Patient admitted from Home to ER for Worsening ulcer of Left Foot that started 2 weeks ago. Patient was referred from his PCP to admit under Dr Castillo. Wound Culture Performed on admission revealed no growth. X-ray- No Osteomyelitis but + for tissue swelling suggestive of cellulitis. MRI- + for Osteomyelitis PATIENT VISIT: 03/17/19 Wound Care Consulted for Discharge Planning.- Okay to discharge from [facility]. Patient to Follow up with Dr. Guzman. 03/17/19 @ 1329 -Request for Home VAC Submitted to [facility] in conjunction with required documentation 03/17/19 6650 - Called for update. [facility] to talk to patient in regards to Copay requirements. Number provided to patient to clarify. 03/17/19 7470 - Patient speaking to [facility] in room and copay met. Spoke with local distributor and VAC to be delivered sometime today. Once VAC arrives patient set to discharge. Education provided on how to care for pump and dressing site. Patient verbalizes understanding Patient verbalizes OP Center called and confirmed appointment with him. Patient to have VAC dressing change 03/18/19 @ 2pm. Patient to follow up with Dr. Guzman next week. Total time spent with patient- 1 hour. PATIENT VISIT: 03/16/19 Patient resting in bed AAOX4. Left Foot Dressing in place. Wound appears hemodynamically stable. Redness improving to plantar and dorsal aspects. Wound bed friable with 100% dark red granular tissue. Weeping moderate serosanguineous fluid. No exposed bone noted. Swelling much improved. +1--> +2 edema. Denuded skin noted at 1st hallux at 1st webspace measuring 3x2x 0.1cm. draining onto 1st webspace and very macerated tissue at first webspace involving 1st and 2nd toes. Patient complains of pain only when tissue palpated. Tolerated procedure well without discomfort. VAC @-120mmhg continuous placed using black foam to two sites. Plantar aspect of hallux and incisional line from hallux toward 1st met. Head. Wound Measurements documented on Wound Assessment section with wound description. Wound Assessment is linked to this note. Discharge Planning for home with OP for dressing changes and follow up with Dr. Guzman at his clinic. IV ABX per Dr. Hood for Osteomyelitis. PATIENT VISIT: 03/13/19 Patient OOB to rest room. Ambulating self back to bed. Education provided. NWB at this time to left Foot. S/P I&D of Left Foot DFU Grade 3 this morning. New Order noted for VAC Placement. Dressing Removed to Left Foot. Strikethrough noted, bloody. - Packing removed. Noted tricking of blood to gauze. Dr. Guzman informed of findings. Rec'd okay to try Silver nitrate sticks. Two sticks tried. noted multiple areas continued to trickle. Too many areas noted and tissue too friable to continue. VAC not appropriate at this time. Dr. Guzman agrees. Okay to place VAC on hold and use Iodoform Packing Gauze. Okay to re-evaluate foot ulcer on Saturday for VAC placement. Wound Packed with Iodoform Packing gauze and Covered with staggered 4x4 gauze and secured with Kerlix wrap and Brayden Bandage. Diabetes education provided. Will need continued reinforcement. Education provided on how to manage dressed wound, Plan reviewed. Patient verbalized understanding. Wound Measurements documented on Wound Assessment section with wound description. Wound Assessment is linked to this note. Ovidio Score 20 No Pressure Ulcers Identified. LAST VISIT: 03/12/19 Patient AAOX4, Calm and cooperative. Able to tolerate manipulation and probing of open ulcer. Left Foot presents with swelling. Redness originating from Left Hallux and streaking to plantar aspect of foot and also streaking toward 1st Metatarsal. 2 ulcerations present and connect/ tunnel. Additional tunneling toward dorsal aspect of 1st metatarsal head 1.5cm . Able to probe to bone on proximal opening at area between 5 and 6 0'clock. Malodorous, draining copious amounts of purulent drainage upon expression from 1st met toward toe. Wound bed 60% slough and 40% friable granulation Wound measurements documented on Wound Assessment portion and are linked to this note. Periwound macerated with loose skin/unattached. Purple areas to dorsal aspect of left great toe with denuded epidermis. Reviewed care with Dr Castillo at bedside. Recommendation: will likely require surgical intervention, MRI ordered for ruling out Osteomyelitis, and deep culture swab ordered for c&S and gram stain. ABX adjusted by Dr. Castillo. Dr. Guzman DPM consulted for evaluation of ulcer for surgical debridement and washout. IMPRESSION: 1. Left Foot Hallux- Medial- DFU Grade 3 with Osteomyelitis- S/P I&D and Washout. 2. Left Foot Great Toe @ 1st Webspace- DFU RECOMMENDATION: 1. Left Foot Hallux- Medial- DFU Grade 3 - S/P I&D and Washout. - Cleanse wound with NS and 4x4 gauze Daily. - Start VAC -120mmHg Continuous, Change TIW. 2.Left Foot Great Toe @ 1st Webspace: - Cleanse wound with NS and 4x4 gauze Dailyf - Apply Maxsorb Ag+ double Layer then Wrap with Kerlix TIW with VAC Dressing Changes. 3. Continue NWB Left Foot Thank you for consulting with Wound Care. Addendum: 03/17/19 at 1704 by Brooks Zazueta RN Amended: Links added.
[2019-03-17] MEDS: HYDROCODONE/APAP 5MG-325MG TAB PO PRN (17:30)
--- NOTE | 2019-03-17 19:50 | NUR ---
Patient discharged from unit at this time via wheelchair. WOund Vac and all supplies in possession. Patient A&Ox3. Patient states no pain. All belongings taken as well.
[2019-03-17 20:16] VITALS: BP 143/87
== END 2019-03-17 20:18 | disposition home or self-care (01) | DRG 629 ==
LOC: ER 14:48 → ERHOLD 18:54 → MED/SURG2 22:03
PROVIDERS: ADMIT Internal Medicine; ATTEND Internal Medicine
PROC: 0Y9N0ZZ Drainage of Left Foot, Open Approach (ICD-10-PCS; principal; 2019-03-12)
PROC: 0QBP0ZZ Excision of Left Metatarsal, Open Approach (ICD-10-PCS; 2019-03-12)
PROC: 02HV33Z Insertion of Infusion Device into Superior Vena Cava, Percutaneous Approach (ICD-10-PCS; 2019-03-14)
DX: E11.69 Type 2 diabetes mellitus with other specified complication (principal); L03.116 Cellulitis of left lower limb; M00.9 Pyogenic arthritis, unspecified; M86.8X7 Other osteomyelitis, ankle and foot; E11.621 Type 2 diabetes mellitus with foot ulcer; L97.524 Non-pressure chronic ulcer of other part of left foot with necrosis of bone; Z79.4 Long term (current) use of insulin; E88.09 Other disorders of plasma-protein metabolism, not elsewhere classified; I10 Essential (primary) hypertension; B95.5 Unspecified streptococcus as the cause of diseases classified elsewhere; D64.9 Anemia, unspecified; B95.8 Unspecified staphylococcus as the cause of diseases classified elsewhere; Z91.19 Patient's noncompliance with other medical treatment and regimen
CPT/HCPCS: 36415; 36569; 71045; 76000; 80048; 80053; 80202; 81001; 82948; 83036; 83605; 83735; 85025; 85610; 85730; 86140; 87040; 87071; 87075; 87186; 87205; 93925; 96361; 97605; 99284; J1100; J1885; J2001; J2250; J2405; J2543; J2710; J3370; J7030; J7050; Q4100

== ENCOUNTER → 2019-03-18 | Outpatient (CLI) | payer BC ==
[~2019-03-18] MED LIST: METFORMIN HCL500 MG PO
== END ==
LOC: WCC 03:00
PROVIDERS: ATTEND Podiatrist Foot Surgery
DX: E11.621 Type 2 diabetes mellitus with foot ulcer (principal); E11.69 Type 2 diabetes mellitus with other specified complication; E11.65 Type 2 diabetes mellitus with hyperglycemia; L97.528 Non-pressure chronic ulcer of other part of left foot with other specified severity; L03.116 Cellulitis of left lower limb; R60.9 Edema, unspecified; B95.62 Methicillin resistant Staphylococcus aureus infection as the cause of diseases classified elsewhere

== ENCOUNTER → 2019-03-20 | Outpatient (CLI) | payer BC | LOC: WCC 15:33 | PROVIDERS: ATTEND Podiatrist Foot Surgery | DX: E11.621 Type 2 diabetes mellitus with foot ulcer (principal); E11.65 Type 2 diabetes mellitus with hyperglycemia; E11.69 Type 2 diabetes mellitus with other specified complication; L97.528 Non-pressure chronic ulcer of other part of left foot with other specified severity; R60.9 Edema, unspecified; L03.116 Cellulitis of left lower limb; B95.7 Other staphylococcus as the cause of diseases classified elsewhere ==

== ENCOUNTER → 2019-03-24 | Outpatient (CLI) | payer BC | LOC: WCC 11:27 | PROVIDERS: ATTEND Podiatrist Foot Surgery | DX: E11.621 Type 2 diabetes mellitus with foot ulcer (principal); E11.69 Type 2 diabetes mellitus with other specified complication; E11.65 Type 2 diabetes mellitus with hyperglycemia; L97.528 Non-pressure chronic ulcer of other part of left foot with other specified severity; L03.116 Cellulitis of left lower limb; B95.7 Other staphylococcus as the cause of diseases classified elsewhere; R60.9 Edema, unspecified ==

== ENCOUNTER → 2019-03-27 | Outpatient (CLI) | payer BC | LOC: WCC 10:51 | PROVIDERS: ATTEND Internal Medicine Infectious Disease | DX: E11.621 Type 2 diabetes mellitus with foot ulcer (principal); E11.69 Type 2 diabetes mellitus with other specified complication; E11.65 Type 2 diabetes mellitus with hyperglycemia; L97.528 Non-pressure chronic ulcer of other part of left foot with other specified severity; L03.116 Cellulitis of left lower limb; R60.9 Edema, unspecified; B95.62 Methicillin resistant Staphylococcus aureus infection as the cause of diseases classified elsewhere; Z01.810 Encounter for preprocedural cardiovascular examination ==

== ENCOUNTER → 2019-03-30 | Outpatient (CLI) | payer BC | LOC: WCC 15:09 | PROVIDERS: ATTEND Internal Medicine Infectious Disease | DX: E11.621 Type 2 diabetes mellitus with foot ulcer (principal); E11.65 Type 2 diabetes mellitus with hyperglycemia; E11.69 Type 2 diabetes mellitus with other specified complication; L97.528 Non-pressure chronic ulcer of other part of left foot with other specified severity; L03.116 Cellulitis of left lower limb; R60.9 Edema, unspecified; B95.62 Methicillin resistant Staphylococcus aureus infection as the cause of diseases classified elsewhere; Z01.810 Encounter for preprocedural cardiovascular examination | CPT/HCPCS: 36415; 82948 ==

== ENCOUNTER → 2019-04-01 | Outpatient (CLI) | payer BC | LOC: WCC 16:19 | PROVIDERS: ATTEND Internal Medicine Infectious Disease | DX: E11.621 Type 2 diabetes mellitus with foot ulcer (principal); E11.65 Type 2 diabetes mellitus with hyperglycemia; E11.69 Type 2 diabetes mellitus with other specified complication; L97.528 Non-pressure chronic ulcer of other part of left foot with other specified severity; L03.116 Cellulitis of left lower limb; R60.9 Edema, unspecified; B95.61 Methicillin susceptible Staphylococcus aureus infection as the cause of diseases classified elsewhere; Z01.810 Encounter for preprocedural cardiovascular examination ==

== ENCOUNTER → 2019-04-03 | Outpatient (CLI) | payer BC ==
--- NOTE | 2019-04-03 12:30 | Diagnostic Imaging Report ---
EXAM: CHEST 2 VIEWS, PA and lateral DATE: 04/03/2019 Time stamp on exam: 11:06 AM INDICATION: Preoperative COMPARISON: None FINDINGS: LINES/TUBES: There is a right-sided PICC with the tip in appropriate location. LUNGS: No consolidations or edema. PLEURA: No effusions or pneumothorax. HEART AND MEDIASTINUM: Normal size and contour. BONES AND SOFT TISSUES: No acute findings. Mild spurring of the lower thoracic spine. IMPRESSION: No acute thoracic abnormality. Signed by: Dr. Jasen Hernandez DO on 04/03/2019 12:27 PM
== END ==
LOC: RAD 10:53
PROVIDERS: ATTEND Internal Medicine Infectious Disease
DX: Z01.810 Encounter for preprocedural cardiovascular examination (principal)
CPT/HCPCS: 71046; 93005; 93306

== ENCOUNTER → 2019-04-03 | Outpatient (CLI) | payer BC | LOC: WCC 13:57 | PROVIDERS: ATTEND Internal Medicine Infectious Disease | DX: E11.621 Type 2 diabetes mellitus with foot ulcer (principal); E11.65 Type 2 diabetes mellitus with hyperglycemia; E11.69 Type 2 diabetes mellitus with other specified complication; L03.116 Cellulitis of left lower limb; L97.528 Non-pressure chronic ulcer of other part of left foot with other specified severity; B95.62 Methicillin resistant Staphylococcus aureus infection as the cause of diseases classified elsewhere; Z01.810 Encounter for preprocedural cardiovascular examination ==

== ENCOUNTER → 2019-04-06 | Outpatient (CLI) | payer BC ==
[~2019-04-06] MED LIST changes: +B&O 60MG R/S 60 MG SUPP PR ONE; +IOPAMIDOL 610MG/1ML 300 MG/ML VIAL IV ONE
== END ==
LOC: WCC 11:54
PROVIDERS: ATTEND Internal Medicine Infectious Disease
DX: E11.621 Type 2 diabetes mellitus with foot ulcer (principal); E11.65 Type 2 diabetes mellitus with hyperglycemia; E11.69 Type 2 diabetes mellitus with other specified complication; L97.528 Non-pressure chronic ulcer of other part of left foot with other specified severity; L03.116 Cellulitis of left lower limb; R60.9 Edema, unspecified; B95.62 Methicillin resistant Staphylococcus aureus infection as the cause of diseases classified elsewhere

== ENCOUNTER → 2019-04-08 | Outpatient (CLI) | payer BC ==
[~2019-04-08] MED LIST changes: -B&O 60MG R/S 60 MG SUPP PR ONE; -IOPAMIDOL 610MG/1ML 300 MG/ML VIAL IV ONE
== END ==
LOC: WCC 15:30
PROVIDERS: ATTEND Internal Medicine Infectious Disease
DX: E11.621 Type 2 diabetes mellitus with foot ulcer (principal); E11.65 Type 2 diabetes mellitus with hyperglycemia; E11.69 Type 2 diabetes mellitus with other specified complication; L97.528 Non-pressure chronic ulcer of other part of left foot with other specified severity; L03.116 Cellulitis of left lower limb; B95.62 Methicillin resistant Staphylococcus aureus infection as the cause of diseases classified elsewhere; R60.9 Edema, unspecified

== ENCOUNTER → 2019-04-10 | Outpatient (CLI) | payer BC | LOC: WCC 15:32 | PROVIDERS: ATTEND Internal Medicine Infectious Disease | DX: E11.621 Type 2 diabetes mellitus with foot ulcer (principal); E11.65 Type 2 diabetes mellitus with hyperglycemia; E11.69 Type 2 diabetes mellitus with other specified complication; L97.528 Non-pressure chronic ulcer of other part of left foot with other specified severity; L03.116 Cellulitis of left lower limb; B95.62 Methicillin resistant Staphylococcus aureus infection as the cause of diseases classified elsewhere ==

== ENCOUNTER → 2019-04-13 | Outpatient (CLI) | payer BC | LOC: WCC 16:07 | PROVIDERS: ATTEND Internal Medicine Infectious Disease | DX: E11.621 Type 2 diabetes mellitus with foot ulcer (principal); E11.69 Type 2 diabetes mellitus with other specified complication; E11.65 Type 2 diabetes mellitus with hyperglycemia; M86.672 Other chronic osteomyelitis, left ankle and foot; L97.528 Non-pressure chronic ulcer of other part of left foot with other specified severity; L03.116 Cellulitis of left lower limb; B95.62 Methicillin resistant Staphylococcus aureus infection as the cause of diseases classified elsewhere; Z01.810 Encounter for preprocedural cardiovascular examination | CPT/HCPCS: 97605; 99213; G0277 ==

== ENCOUNTER → 2019-04-14 | Outpatient (CLI) | payer BC | LOC: WCC 12:08 | PROVIDERS: ATTEND Internal Medicine Infectious Disease | DX: E11.621 Type 2 diabetes mellitus with foot ulcer (principal); E11.65 Type 2 diabetes mellitus with hyperglycemia; E11.69 Type 2 diabetes mellitus with other specified complication; M86.672 Other chronic osteomyelitis, left ankle and foot; L97.528 Non-pressure chronic ulcer of other part of left foot with other specified severity; L03.116 Cellulitis of left lower limb; B95.62 Methicillin resistant Staphylococcus aureus infection as the cause of diseases classified elsewhere; Z01.810 Encounter for preprocedural cardiovascular examination ==

== ENCOUNTER → 2019-04-15 | Outpatient (CLI) | payer BC | LOC: WCC 11:08 | PROVIDERS: ATTEND Internal Medicine Infectious Disease | DX: E11.621 Type 2 diabetes mellitus with foot ulcer (principal); E11.65 Type 2 diabetes mellitus with hyperglycemia; E11.69 Type 2 diabetes mellitus with other specified complication; M86.672 Other chronic osteomyelitis, left ankle and foot; L97.528 Non-pressure chronic ulcer of other part of left foot with other specified severity; L03.116 Cellulitis of left lower limb; B95.62 Methicillin resistant Staphylococcus aureus infection as the cause of diseases classified elsewhere; Z01.810 Encounter for preprocedural cardiovascular examination ==

== ENCOUNTER → 2019-04-16 | Outpatient (CLI) | payer BC | LOC: WCC 09:14 | PROVIDERS: ATTEND Internal Medicine Infectious Disease | DX: E11.621 Type 2 diabetes mellitus with foot ulcer (principal); E11.65 Type 2 diabetes mellitus with hyperglycemia; E11.69 Type 2 diabetes mellitus with other specified complication; M86.672 Other chronic osteomyelitis, left ankle and foot; L97.528 Non-pressure chronic ulcer of other part of left foot with other specified severity; L03.116 Cellulitis of left lower limb; B95.62 Methicillin resistant Staphylococcus aureus infection as the cause of diseases classified elsewhere; Z01.810 Encounter for preprocedural cardiovascular examination ==

== ENCOUNTER → 2019-04-17 | Outpatient (CLI) | payer BC | LOC: WCC 10:25 | PROVIDERS: ATTEND Internal Medicine Infectious Disease ==

== ENCOUNTER → 2019-04-20 | Outpatient (CLI) | payer BC | LOC: WCC 10:41 | PROVIDERS: ATTEND Internal Medicine Infectious Disease | DX: E11.621 Type 2 diabetes mellitus with foot ulcer (principal); E11.65 Type 2 diabetes mellitus with hyperglycemia; E11.69 Type 2 diabetes mellitus with other specified complication; L97.528 Non-pressure chronic ulcer of other part of left foot with other specified severity; L03.116 Cellulitis of left lower limb; B95.62 Methicillin resistant Staphylococcus aureus infection as the cause of diseases classified elsewhere; Z01.810 Encounter for preprocedural cardiovascular examination | CPT/HCPCS: 97605; G0277 ==

== ENCOUNTER → 2019-04-21 | Outpatient (CLI) | payer BC | LOC: WCC 11:43 | PROVIDERS: ATTEND Internal Medicine Infectious Disease | DX: E11.621 Type 2 diabetes mellitus with foot ulcer (principal); E11.65 Type 2 diabetes mellitus with hyperglycemia; E11.69 Type 2 diabetes mellitus with other specified complication; M86.672 Other chronic osteomyelitis, left ankle and foot; L97.528 Non-pressure chronic ulcer of other part of left foot with other specified severity; L03.116 Cellulitis of left lower limb; B95.62 Methicillin resistant Staphylococcus aureus infection as the cause of diseases classified elsewhere ==

== ENCOUNTER → 2019-04-22 | Outpatient (CLI) | payer BC | LOC: WCC 11:31 | PROVIDERS: ATTEND Internal Medicine Infectious Disease | DX: E11.621 Type 2 diabetes mellitus with foot ulcer (principal); E11.65 Type 2 diabetes mellitus with hyperglycemia; E11.69 Type 2 diabetes mellitus with other specified complication; L97.528 Non-pressure chronic ulcer of other part of left foot with other specified severity; L03.116 Cellulitis of left lower limb; B95.62 Methicillin resistant Staphylococcus aureus infection as the cause of diseases classified elsewhere; Z01.810 Encounter for preprocedural cardiovascular examination ==

== ENCOUNTER → 2019-04-24 | Outpatient (CLI) | payer BC | LOC: WCC 11:38 | PROVIDERS: ATTEND Internal Medicine Infectious Disease | DX: E11.621 Type 2 diabetes mellitus with foot ulcer (principal); E11.65 Type 2 diabetes mellitus with hyperglycemia; E11.69 Type 2 diabetes mellitus with other specified complication; M86.672 Other chronic osteomyelitis, left ankle and foot; L97.528 Non-pressure chronic ulcer of other part of left foot with other specified severity; L03.116 Cellulitis of left lower limb; B95.62 Methicillin resistant Staphylococcus aureus infection as the cause of diseases classified elsewhere; Z01.810 Encounter for preprocedural cardiovascular examination | CPT/HCPCS: 97605; G0277 ==

== ENCOUNTER → 2019-04-27 | Outpatient (CLI) | payer BC ==
[~2019-04-27] MED LIST changes: +MINERAL OIL/PETROLAT/GLYCERI 6OZ BTL ONE
== END ==
LOC: WCC 14:56
PROVIDERS: ATTEND Internal Medicine Infectious Disease
DX: E11.621 Type 2 diabetes mellitus with foot ulcer (principal); E11.65 Type 2 diabetes mellitus with hyperglycemia; E11.69 Type 2 diabetes mellitus with other specified complication; M86.672 Other chronic osteomyelitis, left ankle and foot; L97.528 Non-pressure chronic ulcer of other part of left foot with other specified severity; L03.116 Cellulitis of left lower limb; B95.62 Methicillin resistant Staphylococcus aureus infection as the cause of diseases classified elsewhere; Z01.810 Encounter for preprocedural cardiovascular examination
CPT/HCPCS: 36415; 82948; 97605; G0277

== ENCOUNTER → 2019-04-28 | Outpatient (CLI) | payer BC ==
[~2019-04-28] MED LIST changes: -MINERAL OIL/PETROLAT/GLYCERI 6OZ BTL ONE
== END ==
LOC: WCC 13:27
PROVIDERS: ATTEND Internal Medicine Infectious Disease
DX: E11.621 Type 2 diabetes mellitus with foot ulcer (principal); E11.65 Type 2 diabetes mellitus with hyperglycemia; E11.69 Type 2 diabetes mellitus with other specified complication; M86.672 Other chronic osteomyelitis, left ankle and foot; L97.528 Non-pressure chronic ulcer of other part of left foot with other specified severity; L03.116 Cellulitis of left lower limb; B95.62 Methicillin resistant Staphylococcus aureus infection as the cause of diseases classified elsewhere; Z01.810 Encounter for preprocedural cardiovascular examination

== ENCOUNTER → 2019-04-29 | Outpatient (CLI) | payer BC | LOC: WCC 08:55 | PROVIDERS: ATTEND Family Medicine Adult Medicine | DX: E11.621 Type 2 diabetes mellitus with foot ulcer (principal); E11.65 Type 2 diabetes mellitus with hyperglycemia; E11.69 Type 2 diabetes mellitus with other specified complication; M86.672 Other chronic osteomyelitis, left ankle and foot; L97.528 Non-pressure chronic ulcer of other part of left foot with other specified severity; L03.116 Cellulitis of left lower limb; B95.62 Methicillin resistant Staphylococcus aureus infection as the cause of diseases classified elsewhere; Z01.810 Encounter for preprocedural cardiovascular examination ==

== ENCOUNTER → 2019-05-01 | Outpatient (CLI) | payer BC | LOC: WCC 13:42 | PROVIDERS: ATTEND Internal Medicine Infectious Disease | DX: E11.621 Type 2 diabetes mellitus with foot ulcer (principal); E11.65 Type 2 diabetes mellitus with hyperglycemia; E11.69 Type 2 diabetes mellitus with other specified complication; M86.672 Other chronic osteomyelitis, left ankle and foot; L97.528 Non-pressure chronic ulcer of other part of left foot with other specified severity; L03.116 Cellulitis of left lower limb; B95.62 Methicillin resistant Staphylococcus aureus infection as the cause of diseases classified elsewhere; Z01.810 Encounter for preprocedural cardiovascular examination ==

== ENCOUNTER → 2019-05-05 | Outpatient (CLI) | payer BC | LOC: WCC 15:24 | PROVIDERS: ATTEND Internal Medicine Infectious Disease | DX: E11.621 Type 2 diabetes mellitus with foot ulcer (principal); E11.65 Type 2 diabetes mellitus with hyperglycemia; E11.69 Type 2 diabetes mellitus with other specified complication; M86.672 Other chronic osteomyelitis, left ankle and foot; L97.528 Non-pressure chronic ulcer of other part of left foot with other specified severity; L03.116 Cellulitis of left lower limb; B95.62 Methicillin resistant Staphylococcus aureus infection as the cause of diseases classified elsewhere; Z01.810 Encounter for preprocedural cardiovascular examination ==

== ENCOUNTER → 2019-05-06 | Outpatient (CLI) | payer BC | LOC: WCC 14:52 | PROVIDERS: ATTEND Internal Medicine Infectious Disease | DX: E11.621 Type 2 diabetes mellitus with foot ulcer (principal); E11.65 Type 2 diabetes mellitus with hyperglycemia; E11.69 Type 2 diabetes mellitus with other specified complication; M86.672 Other chronic osteomyelitis, left ankle and foot; L97.528 Non-pressure chronic ulcer of other part of left foot with other specified severity; L03.116 Cellulitis of left lower limb; B95.62 Methicillin resistant Staphylococcus aureus infection as the cause of diseases classified elsewhere; Z01.810 Encounter for preprocedural cardiovascular examination | CPT/HCPCS: 97607; G0277 ==

== ENCOUNTER → 2019-05-07 | Outpatient (CLI) | payer BC | LOC: WCC 14:58 | PROVIDERS: ATTEND Internal Medicine Infectious Disease | DX: E11.621 Type 2 diabetes mellitus with foot ulcer (principal); E11.69 Type 2 diabetes mellitus with other specified complication; E11.65 Type 2 diabetes mellitus with hyperglycemia; M86.672 Other chronic osteomyelitis, left ankle and foot; L97.528 Non-pressure chronic ulcer of other part of left foot with other specified severity; L03.116 Cellulitis of left lower limb; B95.62 Methicillin resistant Staphylococcus aureus infection as the cause of diseases classified elsewhere; Z01.810 Encounter for preprocedural cardiovascular examination ==

== ENCOUNTER → 2019-05-08 | Outpatient (CLI) | payer BC | LOC: WCC 13:56 | PROVIDERS: ATTEND Internal Medicine Infectious Disease | DX: E11.621 Type 2 diabetes mellitus with foot ulcer (principal); E11.65 Type 2 diabetes mellitus with hyperglycemia; E11.69 Type 2 diabetes mellitus with other specified complication; M86.672 Other chronic osteomyelitis, left ankle and foot; L97.528 Non-pressure chronic ulcer of other part of left foot with other specified severity; L03.116 Cellulitis of left lower limb; B95.62 Methicillin resistant Staphylococcus aureus infection as the cause of diseases classified elsewhere; Z01.810 Encounter for preprocedural cardiovascular examination | CPT/HCPCS: 97605; G0277 ==

== ENCOUNTER → 2019-05-11 | Outpatient (CLI) | payer BC | LOC: WCC 13:00 | PROVIDERS: ATTEND Internal Medicine Infectious Disease | DX: E11.621 Type 2 diabetes mellitus with foot ulcer (principal); E11.65 Type 2 diabetes mellitus with hyperglycemia; E11.69 Type 2 diabetes mellitus with other specified complication; M86.672 Other chronic osteomyelitis, left ankle and foot; L97.528 Non-pressure chronic ulcer of other part of left foot with other specified severity; L03.116 Cellulitis of left lower limb; B95.62 Methicillin resistant Staphylococcus aureus infection as the cause of diseases classified elsewhere | CPT/HCPCS: 97605; G0277 ==

== ENCOUNTER → 2019-05-12 | Outpatient (CLI) | payer BC | LOC: WCC 11:06 | PROVIDERS: ATTEND Internal Medicine Infectious Disease | DX: E11.621 Type 2 diabetes mellitus with foot ulcer (principal); E11.65 Type 2 diabetes mellitus with hyperglycemia; E11.69 Type 2 diabetes mellitus with other specified complication; M86.672 Other chronic osteomyelitis, left ankle and foot; L97.528 Non-pressure chronic ulcer of other part of left foot with other specified severity; L03.116 Cellulitis of left lower limb; B95.62 Methicillin resistant Staphylococcus aureus infection as the cause of diseases classified elsewhere; Z01.810 Encounter for preprocedural cardiovascular examination ==

== ENCOUNTER → 2019-05-13 | Outpatient (CLI) | payer BC | LOC: WCC 14:55 | PROVIDERS: ATTEND Internal Medicine Infectious Disease | DX: E11.621 Type 2 diabetes mellitus with foot ulcer (principal); E11.65 Type 2 diabetes mellitus with hyperglycemia; E11.69 Type 2 diabetes mellitus with other specified complication; M86.672 Other chronic osteomyelitis, left ankle and foot; L97.528 Non-pressure chronic ulcer of other part of left foot with other specified severity; L03.116 Cellulitis of left lower limb; B95.62 Methicillin resistant Staphylococcus aureus infection as the cause of diseases classified elsewhere; Z01.810 Encounter for preprocedural cardiovascular examination | CPT/HCPCS: 97605; G0277 ==

== ENCOUNTER → 2019-05-15 | Outpatient (CLI) | payer BC | LOC: WCC 10:11 | PROVIDERS: ATTEND Internal Medicine Infectious Disease | DX: E11.621 Type 2 diabetes mellitus with foot ulcer (principal); E11.65 Type 2 diabetes mellitus with hyperglycemia; E11.69 Type 2 diabetes mellitus with other specified complication; M86.672 Other chronic osteomyelitis, left ankle and foot; L97.528 Non-pressure chronic ulcer of other part of left foot with other specified severity; L03.116 Cellulitis of left lower limb; B95.62 Methicillin resistant Staphylococcus aureus infection as the cause of diseases classified elsewhere; Z01.810 Encounter for preprocedural cardiovascular examination ==

== ENCOUNTER → 2019-05-18 | Outpatient (CLI) | payer BC | LOC: WCC 11:30 | PROVIDERS: ATTEND Internal Medicine Infectious Disease | DX: E11.621 Type 2 diabetes mellitus with foot ulcer (principal); E11.65 Type 2 diabetes mellitus with hyperglycemia; E11.69 Type 2 diabetes mellitus with other specified complication; M86.672 Other chronic osteomyelitis, left ankle and foot; L97.528 Non-pressure chronic ulcer of other part of left foot with other specified severity; L03.116 Cellulitis of left lower limb; B95.62 Methicillin resistant Staphylococcus aureus infection as the cause of diseases classified elsewhere; Z01.810 Encounter for preprocedural cardiovascular examination ==

== ENCOUNTER → 2019-05-20 | Outpatient (CLI) | payer BC | LOC: WCC 12:48 | PROVIDERS: ATTEND Internal Medicine Infectious Disease | DX: E11.621 Type 2 diabetes mellitus with foot ulcer (principal); E11.65 Type 2 diabetes mellitus with hyperglycemia; E11.69 Type 2 diabetes mellitus with other specified complication; M86.672 Other chronic osteomyelitis, left ankle and foot; L97.528 Non-pressure chronic ulcer of other part of left foot with other specified severity; L03.116 Cellulitis of left lower limb; B95.62 Methicillin resistant Staphylococcus aureus infection as the cause of diseases classified elsewhere; Z01.810 Encounter for preprocedural cardiovascular examination ==

== ENCOUNTER → 2019-05-22 | Outpatient (CLI) | payer BC | LOC: WCC 11:22 | PROVIDERS: ATTEND Internal Medicine Infectious Disease | DX: E11.621 Type 2 diabetes mellitus with foot ulcer (principal); E11.65 Type 2 diabetes mellitus with hyperglycemia; E11.69 Type 2 diabetes mellitus with other specified complication; M86.672 Other chronic osteomyelitis, left ankle and foot; L97.528 Non-pressure chronic ulcer of other part of left foot with other specified severity; L03.116 Cellulitis of left lower limb; B95.62 Methicillin resistant Staphylococcus aureus infection as the cause of diseases classified elsewhere; Z01.810 Encounter for preprocedural cardiovascular examination ==

== ENCOUNTER → 2019-05-29 | Outpatient (CLI) | payer BC ==
[~2019-05-29] MED LIST changes: +MINERAL OIL/PETROLAT/GLYCERI 6OZ BTL ONE
== END ==
LOC: WCC 11:04
PROVIDERS: ATTEND Internal Medicine Infectious Disease
DX: E11.621 Type 2 diabetes mellitus with foot ulcer (principal); E11.65 Type 2 diabetes mellitus with hyperglycemia; E11.69 Type 2 diabetes mellitus with other specified complication; M86.672 Other chronic osteomyelitis, left ankle and foot; L97.528 Non-pressure chronic ulcer of other part of left foot with other specified severity; L03.116 Cellulitis of left lower limb; B95.62 Methicillin resistant Staphylococcus aureus infection as the cause of diseases classified elsewhere; Z01.810 Encounter for preprocedural cardiovascular examination

== ENCOUNTER → 2019-06-05 | Outpatient (CLI) | payer BC ==
[~2019-06-05] MED LIST changes: -MINERAL OIL/PETROLAT/GLYCERI 6OZ BTL ONE
== END ==
LOC: WCC 02:00
PROVIDERS: ATTEND Internal Medicine Infectious Disease
DX: E11.621 Type 2 diabetes mellitus with foot ulcer (principal); E11.65 Type 2 diabetes mellitus with hyperglycemia; E11.69 Type 2 diabetes mellitus with other specified complication; M86.672 Other chronic osteomyelitis, left ankle and foot; L97.528 Non-pressure chronic ulcer of other part of left foot with other specified severity; L03.116 Cellulitis of left lower limb; B95.62 Methicillin resistant Staphylococcus aureus infection as the cause of diseases classified elsewhere

== ENCOUNTER → 2019-06-12 | Outpatient (CLI) | payer BC | LOC: WCC 06-11 15:29 | PROVIDERS: ATTEND Internal Medicine Infectious Disease | DX: E11.621 Type 2 diabetes mellitus with foot ulcer (principal); E11.65 Type 2 diabetes mellitus with hyperglycemia; E11.69 Type 2 diabetes mellitus with other specified complication; M86.672 Other chronic osteomyelitis, left ankle and foot; L97.528 Non-pressure chronic ulcer of other part of left foot with other specified severity; L03.116 Cellulitis of left lower limb; B95.62 Methicillin resistant Staphylococcus aureus infection as the cause of diseases classified elsewhere; Z01.810 Encounter for preprocedural cardiovascular examination ==

== ENCOUNTER 2021-03-30 10:36 | Inpatient (IN) | payer SELFPAY ==
[~2021-03-30] VITALS: Ht 185.4 cm; Wt 113.4 kg
[2021-03-30] MEDS ORDERED: SOLIQUA 100 UNIT3 ML SC (10:50)
[2021-03-30] MEDS ORDERED: LOSARTAN POTASS50 MG (10:50)
[2021-03-30 11:06] LABS: BASOPHILS # (AUTO) 0.1 (0.0-0.1); BASOPHILS % 1.5 % (0.0-1.0); EOSINOPHILS # (AUTO) 0.4 (0.0-0.4); EOSINOPHILS % 5.3 % (0.0-6.0); HEMATOCRIT 28.1 % (38.2-49.6); HEMOGLOBIN 9.5 g/dL (14.0-18.0); LYMPHOCYTES # (AUTO) 1.4 (1.0-3.2); LYMPHOCYTES % 17.2 % (18.0-39.1); MEAN CORPUSCULAR HEMOGLOBIN 30.8 pg (28-32); MEAN CORPUSCULAR HGB CONC 33.8 g/dL (31-35); MEAN CORPUSCULAR VOLUME 91.2 fL (81-99); MONOCYTES # (AUTO) 0.7 (0.2-0.8); MONOCYTES % 8.3 % (4.4-11.3); NEUTROPHILS # (AUTO) 5.4 (2.1-6.9); NEUTROPHILS % 67.3 % (38.7-80.0); PLATELET COUNT 243 x10e3/uL (140-360); RED BLOOD COUNT 3.08 x10e6/uL (4.3-5.7); RED CELL DISTRIBUTION WIDTH 13.7 % (11.7-14.4)
[2021-03-30 11:28] LABS: ALBUMIN 1.7 g/dL (3.5-5.0); ALBUMIN/GLOBULIN RATIO 0.4 (0.8-2.0); ANION GAP 15.9 mmol/L (8-16); CREATININE, SERUM 9.47 mg/dL (0.72-1.25); POTASSIUM 4.9 mmol/L (3.5-5.1)
[2021-03-30 11:33] LABS: CALCIUM 6.8 mg/dL (8.4-10.2)
[2021-03-30] MEDS ORDERED: CALCIUM GLUCONATE 10% INJ 4.65 MEQ in SODIUM CHLORIDE 0.9% 50ML 50 ML IV ONE (12:00)
[2021-03-30] MEDS ORDERED: LIDOCAINE HCL 1% LOCAL INJ 20 ML VIAL ONE (13:07)
[2021-03-30] MEDS ORDERED: HEPARIN SOD (PORCINE) 1000 UNIT/ML SDV ONE (14:09)
[2021-03-30] MEDS ORDERED: MANNITOL 25% 12.5GM/50 ML VIAL IV PRN (17:45)
[2021-03-30] MEDS ORDERED: SODIUM CHLORIDE 0.9% 250ML 500 ML IV PRN (17:45)
[2021-03-30] MEDS ORDERED: SODIUM CHLORIDE 0.9% 1000ML 2,000 ML IV PRN (17:45)
[2021-03-30] MEDS ORDERED: HEPARIN SOD (PORCINE) 1000 UNIT/ML SDV IV PRN (17:45)
[2021-03-30 19:15] VITALS: BP 189/123
[2021-03-30 20:00] VITALS: BP 189/123
[2021-03-30 20:25] VITALS: BP 189/123
[2021-03-30] MEDS ORDERED: DEXTROSE 50% SYRINGE 50 ML IV PRN (22:00)
[2021-03-30] MEDS: HYDRALAZINE HCL 20 MG/ML VIAL IV PRN (22:00)
[2021-03-31] VITALS (10 sets, daily range): BP systolic 108–174; BP diastolic 71–106
[2021-03-31] MEDS: HYDRALAZINE HCL 20 MG/ML VIAL IV PRN ×2 (03:25→15:17)
[2021-03-31 05:39] LABS: BASOPHILS # (AUTO) 0.2 (0.0-0.1); BASOPHILS % 2.3 % (0.0-1.0); EOSINOPHILS # (AUTO) 0.4 (0.0-0.4); EOSINOPHILS % 5.4 % (0.0-6.0); HEMATOCRIT 27.3 % (38.2-49.6); HEMOGLOBIN 9.6 g/dL (14.0-18.0); LYMPHOCYTES # (AUTO) 1.3 (1.0-3.2); LYMPHOCYTES % 19.6 % (18.0-39.1); MEAN CORPUSCULAR HEMOGLOBIN 31.5 pg (28-32); MEAN CORPUSCULAR HGB CONC 35.2 g/dL (31-35); MEAN CORPUSCULAR VOLUME 89.5 fL (81-99); MONOCYTES # (AUTO) 0.5 (0.2-0.8); MONOCYTES % 7.7 % (4.4-11.3); NEUTROPHILS # (AUTO) 4.2 (2.1-6.9); NEUTROPHILS % 64.4 % (38.7-80.0); PLATELET COUNT 239 x10e3/uL (140-360); RED BLOOD COUNT 3.05 x10e6/uL (4.3-5.7); RED CELL DISTRIBUTION WIDTH 13.6 % (11.7-14.4)
[2021-03-31 06:34] LABS: ANION GAP 14.3 mmol/L (8-16); CREATININE, SERUM 7.36 mg/dL (0.72-1.25); POTASSIUM 4.3 mmol/L (3.5-5.1)
[2021-03-31 06:37] LABS: CALCIUM 6.7 mg/dL (8.4-10.2)
[2021-03-31] MEDS: INSULIN LISPRO 100 UNIT/1 ML 3ML VIAL SQ SCH ×4 (07:30→20:28)
[2021-03-31 07:45] LABS: % IRON SATURATION 15 % (15-50); CHOL/HDL RATIO 4.1 (3.9-4.7); IRON 31 ug/dL (65-175); TOTAL IRON BINDING CAPACITY 213 ug/dL (261-478); TRANSFERRIN 152 mg/dL (174-364)
[2021-03-31 08:02] LABS: FREE THYROXINE INDEX 1.738 (1.4-3.8); THYROID STIMULATING HORMONE 5.107 uIU/mL (0.350-4.940)
[2021-03-31] MEDS: NIFEDIPINE CR 30 MG TAB PO SCH ×2 (09:00→12:15)
[2021-03-31] MEDS: CALCITRIOL 0.25 MCG CAP PO SCH (15:00)
[2021-03-31] MEDS: SODIUM BICARBONATE 650 MG TAB PO SCH (16:54)
[2021-03-31] MEDS: CALCIUM CARBONATE 500 MG CHEWABLE TABS PO SCH (16:54)
[2021-03-31] MEDS: ACETAMINOPHEN 325 MG TAB PO PRN (23:06)
[2021-04-01] VITALS (7 sets, daily range): BP systolic 123–154; BP diastolic 80–88
[2021-04-01 05:22] LABS: BASOPHILS # (AUTO) 0.1 (0.0-0.1); BASOPHILS % 1.9 % (0.0-1.0); EOSINOPHILS # (AUTO) 0.3 (0.0-0.4); EOSINOPHILS % 4.8 % (0.0-6.0); HEMOGLOBIN 9.9 g/dL (14.0-18.0); LYMPHOCYTES # (AUTO) 1.5 (1.0-3.2); MEAN CORPUSCULAR HEMOGLOBIN 29.9 pg (28-32); MEAN CORPUSCULAR HGB CONC 34.1 g/dL (31-35); MEAN CORPUSCULAR VOLUME 87.6 fL (81-99); MONOCYTES # (AUTO) 0.5 (0.2-0.8); MONOCYTES % 7.1 % (4.4-11.3); NEUTROPHILS # (AUTO) 4.3 (2.1-6.9); NEUTROPHILS % 63.9 % (38.7-80.0); PLATELET COUNT 285 x10e3/uL (140-360); RED BLOOD COUNT 3.31 x10e6/uL (4.3-5.7); RED CELL DISTRIBUTION WIDTH 13.2 % (11.7-14.4)
[2021-04-01 06:04] LABS: ALBUMIN 1.7 g/dL (3.5-5.0); ALBUMIN/GLOBULIN RATIO 0.4 (0.8-2.0); ANION GAP 13.1 mmol/L (8-16); CALCIUM 7.4 mg/dL (8.4-10.2); CREATININE, SERUM 5.91 mg/dL (0.72-1.25); POTASSIUM 4.1 mmol/L (3.5-5.1)
[2021-04-01] MEDS: INSULIN LISPRO 100 UNIT/1 ML 3ML VIAL SQ SCH ×4 (07:30→20:03)
[2021-04-01] MEDS: IRON SUCROSE 100 MG in SODIUM CHLORIDE 0.9% 100 ML 100 ML IV SCH (15:35)
[2021-04-01] MEDS: NIFEDIPINE CR 30 MG TAB PO SCH (15:35)
[2021-04-01] MEDS: CALCITRIOL 0.25 MCG CAP PO SCH (15:35)
[2021-04-01] MEDS: SODIUM BICARBONATE 650 MG TAB PO SCH (15:35)
[2021-04-01] MEDS: CALCIUM CARBONATE 500 MG CHEWABLE TABS PO SCH (15:35)
[2021-04-02] VITALS: BP 155/92
[2021-04-02 04:00] VITALS: BP 139/83
[2021-04-02] MEDS: INSULIN LISPRO 100 UNIT/1 ML 3ML VIAL SQ SCH ×4 (07:30→20:13)
[2021-04-02 08:19] VITALS: BP 139/83
[2021-04-02 10:12] VITALS: BP 147/80
[2021-04-02] MEDS: IRON SUCROSE 100 MG in SODIUM CHLORIDE 0.9% 100 ML 100 ML IV SCH (11:48)
[2021-04-02] MEDS: NIFEDIPINE CR 30 MG TAB PO SCH (11:49)
[2021-04-02] MEDS: CALCIUM CARBONATE 500 MG CHEWABLE TABS PO SCH ×2 (11:49→16:21)
[2021-04-02] MEDS: CALCITRIOL 0.25 MCG CAP PO SCH (11:49)
[2021-04-02] MEDS: SODIUM BICARBONATE 650 MG TAB PO SCH ×2 (11:49→16:21)
[2021-04-02 20:00] VITALS: BP 130/87
[2021-04-02 21:02] VITALS: BP 130/87
[2021-04-03] VITALS (8 sets, daily range): BP systolic 127–159; BP diastolic 78–98
[2021-04-03 05:31] LABS: BASOPHILS # (AUTO) 0.1 (0.0-0.1); BASOPHILS % 1.7 % (0.0-1.0); EOSINOPHILS # (AUTO) 0.3 (0.0-0.4); EOSINOPHILS % 4.3 % (0.0-6.0); HEMATOCRIT 23.8 % (38.2-49.6); LYMPHOCYTES # (AUTO) 1.5 (1.0-3.2); LYMPHOCYTES % 20.1 % (18.0-39.1); MEAN CORPUSCULAR HEMOGLOBIN 30.3 pg (28-32); MEAN CORPUSCULAR HGB CONC 33.6 g/dL (31-35); MEAN CORPUSCULAR VOLUME 90.2 fL (81-99); MONOCYTES # (AUTO) 0.6 (0.2-0.8); MONOCYTES % 8.3 % (4.4-11.3); NEUTROPHILS # (AUTO) 4.9 (2.1-6.9); NEUTROPHILS % 65.2 % (38.7-80.0); PLATELET COUNT 216 x10e3/uL (140-360); RED BLOOD COUNT 2.64 x10e6/uL (4.3-5.7); RED CELL DISTRIBUTION WIDTH 13.3 % (11.7-14.4)
[2021-04-03 06:40] LABS: ANION GAP 10.4 mmol/L (8-16); CREATININE, SERUM 4.71 mg/dL (0.72-1.25); POTASSIUM 4.4 mmol/L (3.5-5.1)
[2021-04-03 06:54] LABS: INR 0.88; PROTHROMBIN TIME 12.5 seconds (11.9-14.5)
[2021-04-03] MEDS: INSULIN LISPRO 100 UNIT/1 ML 3ML VIAL SQ SCH ×4 (07:30→21:00)
[2021-04-03] MEDS ORDERED: EPOETIN ALFA-EPBX 10,000 UNIT/ML VIAL SC ONE (08:00)
[2021-04-03] MEDS ORDERED: FENTANYL CITRATE/PF 100MCG/2 ML INJ ONE ×2 (08:41→15:38)
[2021-04-03] MEDS ORDERED: MIDAZOLAM HCL 2 MG/2 ML VIAL ONE (08:41)
[2021-04-03] MEDS ORDERED: CEFAZOLIN SOD 1 GM/NS 50ML 50 ML IV ONE (08:41)
[2021-04-03] MEDS ORDERED: LIDOCAINE HCL 1% LOCAL INJ 20 ML VIAL ONE (08:44)
[2021-04-03] MEDS ORDERED: HEPARIN SOD (PORCINE) 1000 UNIT/ML SDV ONE (08:45)
[2021-04-03] MEDS: CALCIUM CARBONATE 500 MG CHEWABLE TABS PO SCH ×2 (09:00→16:39)
[2021-04-03] MEDS: IRON SUCROSE 100 MG in SODIUM CHLORIDE 0.9% 100 ML 100 ML IV SCH (10:58)
[2021-04-03] MEDS ORDERED: PROTAMINE SULFATE 10 MG/ML 5 ML VIAL ONE (12:15)
[2021-04-03] MEDS ORDERED: HEPARIN SOD (PORCINE) 1000 UNIT/ML 30ML ONE (12:15)
[2021-04-03] MEDS ORDERED: BUPIVACAINE HCL 0.5% INJ 30 ML VIAL INJ ONE (12:16)
[2021-04-03] MEDS ORDERED: SODIUM CHLORIDE 0.9% 500ML 500 ML ONE ×2 (12:16→12:17)
[2021-04-03] MEDS: CALCITRIOL 0.25 MCG CAP PO SCH (16:39)
[2021-04-03] MEDS: SODIUM BICARBONATE 650 MG TAB PO SCH (16:39)
[2021-04-03] MEDS: DOCUSATE SODIUM 100 MG CAP PO PRN (16:39)
[2021-04-03] MEDS: NIFEDIPINE CR 30 MG TAB PO SCH (16:39)
[2021-04-03] MEDS: ACETAMINOPHEN 325 MG TAB PO PRN (16:47)
[2021-04-03] MEDS ORDERED: POVIDONE IODINE 0.05% 0.05 % ML PO ONE (17:24)
[2021-04-03] MEDS ORDERED: LIDOCAINE HCL 2% LOCAL INJ 5 ML SDV VIAL INJ ONE (17:24)
[2021-04-03] MEDS ORDERED: LIDOCAINE HCL 2% JELLY 5 ML TUBE ONE (17:24)
[2021-04-03] MEDS ORDERED: SEVOFLURANE INHAL SOLN 250 ML PEN BTL ONE (17:24)
[2021-04-03] MEDS ORDERED: ONDANSETRON HCL INJ 2MG/ML 2ML 2 MG/ML VIAL ONE (17:24)
[2021-04-03] MEDS ORDERED: PROPOFOL IV EMULSION 10 MG/ML 20 ML VIAL ONE (17:24)
[2021-04-04] VITALS (8 sets, daily range): BP systolic 115–146; BP diastolic 73–98
[2021-04-04] MEDS: INSULIN LISPRO 100 UNIT/1 ML 3ML VIAL SQ SCH ×4 (07:30→21:00)
[2021-04-04] MEDS: IRON SUCROSE 100 MG in SODIUM CHLORIDE 0.9% 100 ML 100 ML IV SCH (08:59)
[2021-04-04] MEDS: CALCITRIOL 0.25 MCG CAP PO SCH (08:59)
[2021-04-04] MEDS: SODIUM BICARBONATE 650 MG TAB PO SCH (08:59)
[2021-04-04] MEDS: CALCIUM CARBONATE 500 MG CHEWABLE TABS PO SCH ×2 (08:59→16:51)
[2021-04-04] MEDS: DOCUSATE SODIUM 100 MG CAP PO PRN (09:00)
[2021-04-04] MEDS: NIFEDIPINE CR 30 MG TAB PO SCH (09:00)
[2021-04-04] MEDS: ACETAMINOPHEN 325 MG TAB PO PRN ×2 (09:01→19:11)
[2021-04-04] MEDS ORDERED: LACTULOSE SYRUP 20 GM/30 ML UDC PO PRN (18:00)
[2021-04-05 00:03] VITALS: BP 149/98
[2021-04-05 04:42] VITALS: BP 148/89
[2021-04-05] MEDS: ACETAMINOPHEN 325 MG TAB PO PRN (07:20)
[2021-04-05] MEDS: INSULIN LISPRO 100 UNIT/1 ML 3ML VIAL SQ SCH (07:30)
[2021-04-05] MEDS ORDERED: ENULOSE10 GM/15 M PO (07:46)
[2021-04-05] MEDS ORDERED: PROCARDIA XL30 MG PO (07:47)
[2021-04-05] MEDS ORDERED: SODIUM BICARBO650 MG PO (07:47)
[2021-04-05 08:30] VITALS: BP 152/97
[2021-04-05] MEDS: CALCITRIOL 0.25 MCG CAP PO SCH (08:39)
[2021-04-05] MEDS: SODIUM BICARBONATE 650 MG TAB PO SCH (08:39)
[2021-04-05] MEDS: CALCIUM CARBONATE 500 MG CHEWABLE TABS PO SCH (08:39)
[2021-04-05] MEDS: NIFEDIPINE CR 30 MG TAB PO SCH (08:40)
[2021-04-05 09:12] VITALS: BP 152/97
== END 2021-04-05 09:45 | disposition home or self-care (01) | DRG 673 ==
LOC: ER 10:46 → ERHOLD 12:05 → MED/SURG2 18:25
PROVIDERS: ADMIT Family Medicine; ATTEND Family Medicine
PROC: 02HV33Z Insertion of Infusion Device into Superior Vena Cava, Percutaneous Approach (ICD-10-PCS; principal; 2021-03-30)
PROC: B548ZZA Ultrasonography of Superior Vena Cava, Guidance (ICD-10-PCS; 2021-03-30)
PROC: 5A1D70Z Performance of Urinary Filtration, Intermittent, Less than 6 Hours Per Day (ICD-10-PCS; 2021-03-30)
PROC: 5A1D70Z Performance of Urinary Filtration, Intermittent, Less than 6 Hours Per Day (ICD-10-PCS; 2021-03-31)
PROC: 5A1D70Z Performance of Urinary Filtration, Intermittent, Less than 6 Hours Per Day (ICD-10-PCS; 2021-04-02)
PROC: 03180ZF Bypass Left Brachial Artery to Lower Arm Vein, Open Approach (ICD-10-PCS; 2021-04-03)
PROC: 0JHH3XZ Insertion of Tunneled Vascular Access Device into Left Lower Arm Subcutaneous Tissue and Fascia, Percutaneous Approach (ICD-10-PCS; 2021-04-03)
PROC: 02PYX3Z Removal of Infusion Device from Great Vessel, External Approach (ICD-10-PCS; 2021-04-03)
PROC: 02HV33Z Insertion of Infusion Device into Superior Vena Cava, Percutaneous Approach (ICD-10-PCS; 2021-04-03)
PROC: 5A1D70Z Performance of Urinary Filtration, Intermittent, Less than 6 Hours Per Day (ICD-10-PCS; 2021-04-04)
DX: I12.0 Hypertensive chronic kidney disease with stage 5 chronic kidney disease or end stage renal disease (principal); N18.6 End stage renal disease; N17.9 Acute kidney failure, unspecified; I16.9 Hypertensive crisis, unspecified; E87.2 Acidosis; N25.81 Secondary hyperparathyroidism of renal origin; E11.22 Type 2 diabetes mellitus with diabetic chronic kidney disease; E11.319 Type 2 diabetes mellitus with unspecified diabetic retinopathy without macular edema; E11.40 Type 2 diabetes mellitus with diabetic neuropathy, unspecified; E83.51 Hypocalcemia; E11.21 Type 2 diabetes mellitus with diabetic nephropathy; D63.8 Anemia in other chronic diseases classified elsewhere; E66.01 Morbid (severe) obesity due to excess calories; Z68.33 Body mass index [BMI] 33.0-33.9, adult
CPT/HCPCS: 36415; 36556; 36558; 71045; 74470; 76770; 76937; 77001; 80048; 80053; 80061; 82565; 82948; 83036; 83540; 83880; 83970; 84100; 84436; 84443; 84466; 84479; 84484; 85025; 85610; 86704; 87340; 87350; 90962; 93005; 93306; 99284; C1713; C1769; C1892; J0360; J0610; J0690; J1644; J1756; J2001; J2150; J2250; J2405; J2720; J3010; J7030; J7040; U0002

== ENCOUNTER → 2022-08-23 | Outpatient (CLI) | payer MEDICARE, OTHER ==
[~2022-08-23] MED LIST changes: +ENULOSE10 GM/15 M PO; +LOSARTAN POTASS50 MG; +PROCARDIA XL30 MG PO; +SODIUM BICARBO650 MG PO; +SOLIQUA 100 UNIT3 ML SC
== END ==
LOC: MRI 08:58
PROVIDERS: ATTEND Podiatrist Foot Surgery
DX: M86.9 Osteomyelitis, unspecified (principal)

== ENCOUNTER → 2022-09-28 | Day surgery (SDC) | payer MEDICARE, OTHER ==
[2022-09-26 11:53] LABS: BASOPHILS # (AUTO) 0.1 (0.0-0.1); BASOPHILS % 2.1 % (0.0-1.0); EOSINOPHILS # (AUTO) 0.2 (0.0-0.4); EOSINOPHILS % 3.1 % (0.0-6.0); HEMATOCRIT 31.6 % (38.2-49.6); HEMOGLOBIN 10.1 g/dL (14.0-18.0); LYMPHOCYTES % 21.4 % (18.0-39.1); MEAN CORPUSCULAR HEMOGLOBIN 32.2 pg (28-32); MEAN CORPUSCULAR VOLUME 100.6 fL (81-99); MONOCYTES # (AUTO) 0.4 (0.2-0.8); NEUTROPHILS # (AUTO) 3.1 (2.1-6.9); NEUTROPHILS % 64.2 % (38.7-80.0); PLATELET COUNT 173 x10e3/uL (140-360); RED BLOOD COUNT 3.14 x10e6/uL (4.3-5.7); RED CELL DISTRIBUTION WIDTH 14.6 % (11.7-14.4)
[2022-09-26 12:27] LABS: ANION GAP 19.9 mmol/L (8-16); CALCIUM 9.4 mg/dL (8.4-10.2); CREATININE, SERUM 10.57 mg/dL (0.72-1.25); POTASSIUM 4.9 mmol/L (3.5-5.1)
[~2022-09-28] MED LIST changes: +BUPIVACAINE HCL 0.5% INJ 30 ML VIAL INJ ONE; +DEXAMETHASONE SOD PHOS INJ 4 MG/ML SDV ONE; +FENTANYL CITRATE/PF 100MCG/2 ML INJ ONE; +MIDAZOLAM HCL 2 MG/2 ML VIAL ONE; +MUPIROCIN 2% OINT 22 GM TUBE ONE; +ONDANSETRON HCL INJ 2MG/ML 2ML 2 MG/ML VIAL ONE; +POVIDONE IODINE 0.05% 0.05 % ML PO ONE; +PROPOFOL IV EMULSION 10 MG/ML 20 ML VIAL ONE; +SEVOFLURANE INHAL SOLN 250 ML PEN BTL ONE; +SODIUM CHLORIDE 0.9% 500ML 500 ML ONE
[2022-09-28 10:23] LABS: BASOPHILS # (AUTO) 0.1 (0.0-0.1); BASOPHILS % 2.1 % (0.0-1.0); EOSINOPHILS # (AUTO) 0.2 (0.0-0.4); EOSINOPHILS % 3.5 % (0.0-6.0); HEMATOCRIT 33.5 % (38.2-49.6); HEMOGLOBIN 10.8 g/dL (14.0-18.0); LYMPHOCYTES % 18.3 % (18.0-39.1); MEAN CORPUSCULAR HEMOGLOBIN 32.4 pg (28-32); MEAN CORPUSCULAR HGB CONC 32.2 g/dL (31-35); MEAN CORPUSCULAR VOLUME 100.6 fL (81-99); MONOCYTES # (AUTO) 0.4 (0.2-0.8); MONOCYTES % 8.5 % (4.4-11.3); NEUTROPHILS # (AUTO) 3.5 (2.1-6.9); NEUTROPHILS % 67.4 % (38.7-80.0); PLATELET COUNT 214 x10e3/uL (140-360); RED BLOOD COUNT 3.33 x10e6/uL (4.3-5.7); RED CELL DISTRIBUTION WIDTH 14.5 % (11.7-14.4)
[2022-09-28 10:35] LABS: INR 1.01; PARTIAL THROMBOPLASTIN TIME 29.9 seconds (23.8-35.5); PROTHROMBIN TIME 13.5 seconds (11.9-14.5)
[2022-09-28 10:50] LABS: ANION GAP 16.6 mmol/L (8-16); CALCIUM 9.1 mg/dL (8.4-10.2); CREATININE, SERUM 5.68 mg/dL (0.72-1.25); POTASSIUM 4.6 mmol/L (3.5-5.1)
[2022-09-28 13:50] VITALS: BP 167/92
== END | disposition home or self-care (01) ==
LOC: OR 09:54
PROVIDERS: ATTEND Podiatrist Foot Surgery
DX: L89.892 Pressure ulcer of other site, stage 2 (principal); S93.125A Dislocation of metatarsophalangeal joint of left lesser toe(s), initial encounter; E11.22 Type 2 diabetes mellitus with diabetic chronic kidney disease; N18.6 End stage renal disease; Z99.2 Dependence on renal dialysis; X58.XXXA Exposure to other specified factors, initial encounter; Z01.810 Encounter for preprocedural cardiovascular examination; Z01.812 Encounter for preprocedural laboratory examination; Z01.818 Encounter for other preprocedural examination
CPT/HCPCS: 28112; 36415 ×2; 71046; 76000; 80048 ×2; 82948; 85025 ×2; 85610; 85730; 87071; 87205; 88304; 88311; 93005; J0690; J1100; J2250; J2405; J2704; J3010; J7040